=== PATIENT | female | born 1945 | race Caucasian/White ===

== ENCOUNTER → 2017-12-03 09:50 | Outpatient (POV) | payer MEDICARE, BC, SELFPAY | PROVIDERS: Family Provider Nurse Practitioner Family; PCP Family Medicine; Visit Provider Physician Assistant | DX: Z00.00 Encounter for general adult medical examination without abnormal findings (principal) ==

== ENCOUNTER → 2018-09-26 09:53 | Outpatient (CLI) | payer MEDICARE, BC, SELFPAY ==
[2018-09-26 10:19] LABS: Microscopic, Urine URINE MICROSCOPIC (MICROSCOPIC)
[2018-09-26 11:04] LABS: Appearance,Urine CLEAR (Clear); Bilirubin,Urine Negative (Negative); Blood, Urine TRACE-L (Negative); Color,Urine YELLOW (Yellow); Glucose,Urine (UA) Negative (Negative); Ketones,Urine Negative (Negative); Leukocyte Esterase,Urine Negative (Negative); Nitrate,Urine Negative (Negative); Protein,Urine Negative (Negative); Specific Gravity, Urine 1.015 (1.005-1.030); Urobilinogen,Urine 0.2 EU/dl (0.2)
[2018-09-26 11:15] LABS: Basophils # 0.1 K/mm3 (0-0.2); Basophils % 1.2 % (0.1-2.0); Eosinophils # 0.2 K/mm3 (0.0-0.4); Eosinophils % 3.8 % (0.1-12.0); Hematocrit 37.9 % (37.0-47.0); Hemoglobin 12.6 g/dL (12.2-16.2); Lymphocytes # 1.8 K/mm3 (0.7-4.5); Lymphocytes % 28.8 % (10-50); Mean Corpuscular HGB Conc 33.3 g/dL (31.8-35.4); Mean Corpuscular Hemoglobin 28.8 pg (27.0-31.2); Mean Corpuscular Volume 86.6 fl (81-99); Monocytes # 0.3 K/mm3 (0.1-1.0); Monocytes % 5.3 % (1.7-9.3); Neutrophils # 3.7 K/mm3 (1.8-7.8); Platelet Count 323 K/mm3 (142-424); Red Blood Count 4.38 M/mm3 (4.20-5.40); Red Cell Distribution Width 13.7 % (11.5-17.5); White Blood Count 6.1 K/mm3 (4.8-10.8)
[2018-09-26 11:45] LABS: Alanine Aminotransferase 21 U/L (12-78); Albumin Level 3.7 gm/dL (3.4-5.0); Albumin/Globulin Ratio 1.1 (1.1-1.8); Alkaline Phosphatase 94 U/L (46-116); Anion Gap 15.9 mEq/L (5-15); Aspartate Amino Transferase 17 U/L (15-37); Bilirubin,Total 0.5 mg/dL (0.2-1.0); Blood Urea Nitrogen 14 mg/dL (7-18); Calcium 9.3 mg/dL (8.5-10.1); Carbon Dioxide 26 mmol/L (21.0-32.0); Chloride 100 mmol/L (98-107); Chol/HDL Ratio 4.7 (1-3.5); Cholesterol 197 mg/dL (140-200); Creatinine,Serum 0.69 mg/dL (0.55-1.02); Estimated Glomerular Filt Rate 84 ml/min (>60); Free T4 (Free Thyroxine) 1.25 ng/dl (0.76-1.46); GFR (African American) 101 ML/MIN (>60); Globulin 3.3 gm/dl (1.3-3.2); Glucose 96 mg/dL (74-106); HDL Cholesterol 42 mg/dL (29-89); LDL Cholesterol 121 mg/dL (0-130); Potassium 3.9 mmoL/L (3.5-5.1); Sodium 138 mmol/L (136-145); Thyroid Stimulating Hormone 1.41 uIU/ml (0.358-3.740); Triglycerides 170 mg/dL (30-200); VLDL Cholesterol 34 mg/dL (0-40)
[2018-09-27 08:29] LABS: Iron 77 ug/dL (27-139); UIBC 196 ug/dL (118-369)
[2018-09-28 03:46] LABS: Iron Saturation 28 % (15-55); Vitamin B12 617 pg/mL (232-1245)
[2018-09-30 20:09] LABS: 1,25-Dihydroxy, Vitamin D-2 <10 pg/mL (.)
[2018-10-01 06:11] LABS: 1,25 Dihydroxy Vitamin D 32 pg/mL (.); 1,25-Dihydroxy, Vitamin D-3 32 pg/mL (.)
== END ==
PROVIDERS: Visit Provider Emergency Medicine
DX: E78.5 Hyperlipidemia, unspecified (principal); D64.9 Anemia, unspecified; I10 Essential (primary) hypertension; E53.8 Deficiency of other specified B group vitamins
CPT/HCPCS: 80053; 80061; 81001; 82607; 82652; 82746; 83540; 83550; 84439; 84443; 85025

== ENCOUNTER → 2019-07-01 14:50 | Outpatient (POV) | payer MEDICARE, BC, SELFPAY | PROVIDERS: Visit Provider Dermatology | DX: Z00.00 Encounter for general adult medical examination without abnormal findings (principal) ==

== ENCOUNTER → 2019-07-10 10:48 | Outpatient (CLI) | payer MEDICARE, BC, SELFPAY ==
--- NOTE | 2019-07-10 | MR_ITS ---
PROCEDURE: MR LUMBAR SPINE WO CON CLINICAL INDICATION: RADICULAR PAIN COMPARISON: No exams were available for comparison TECHNIQUE: Standard multiplanar multiecho sequences are performed without contrast. 3-D MIP and myelographic images are also rendered and reviewed FINDINGS: There is moderate anterior subluxation of L5 on S1. Are multiple levels of severe degenerative disc disease at L3 through S1. There are type 1 subchondral marrow signal changes at L1-2 and L5-S1. L1-2: Mild bulge with a mild ventral thecal sac deformity. Foraminal areas are normal. L2-3: There is a disc bulge with a mild to moderate associated right paracentral protrusion of the nucleus pulposis. There is mild facet hypertrophy. This causes moderate generalized thecal sac attenuation greater along the right lateral recess. Foraminal nerve roots appear normal. L3-4: There is diffuse mild bulge/posterior spur along with mild facet hypertrophy causing mild to moderate generalized thecal sac attenuation. There is bilateral foraminal encroachment which is mild on the right and moderate on the left however there is no definite deformity of the foraminal nerve root. L4-5: There is a very mild disc bulge and mild facet hypertrophy within the generalized mild thecal sac attenuation. The there is however severe foraminal encroachment on the left with possible mild deformity of the left L4 nerve root in the foramina. L5-S1 shows the subluxation and borderline mild disc bulge. Posterior elements are unremarkable and there is no definite thecal sac attenuation however there is severe loss of the epidural fat in the foraminal areas bilaterally specially on the left and mass effect upon the left L5 nerve root in the foramina is possible. Conus area appears unremarkable. There is crowding of the cauda equina structures at L2-3. Visualized paraspinal areas are unremarkable. IMPRESSION: Multiple levels of chronic intervertebral osteochondrosis. 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 Multiple bulges and facet arthrosis cause acquired central canal stenosis which is generally mild although more moderate at L2-3 especially along the right lateral recess. There is associated bulge and right paracentral herniation of the protrusion type. Areas of foraminal stenosis, occurs at multiple levels although is more severe bilaterally at L5-S1 and on the left at L4-5. Dictated by: Ulises Ty 07/10/2019 12:18 Electronically signed by Ulises Ty in [place] 07/10/2019 12:18
== END ==
PROVIDERS: Visit Provider Emergency Medicine
DX: M54.16 Radiculopathy, lumbar region (principal)
CPT/HCPCS: 72148; 76376

== ENCOUNTER → 2019-12-01 10:56 | Outpatient (CLI) | payer MEDICARE, BC, SELFPAY ==
--- NOTE | 2019-12-01 11:05 | XR_ITS ---
PROCEDURE: XR HIP LT 2-3V W/PELVIS CLINICAL INDICATION: LT HIP PAIN COMPARISON: No exams were available for comparison FINDINGS: Mild osteoarthritis of the left hip. No acute fracture or dislocation. No lytic or blastic change. Incidental note is made of osteitis pubis, mild osteoarthritis of the right hip, and degenerative changes of the lumbar spine and lumbosacral junction. IMPRESSION: Mild osteoarthritis of the left hip Dictated by: Gary Bess MD 12/01/2019 11:28 Electronically signed by Gary Bess MD in [place] 12/01/2019 11:28
== END ==
PROVIDERS: PCP Nurse Practitioner Family; Visit Provider Nurse Practitioner Family
DX: M25.562 Pain in left knee (principal)
CPT/HCPCS: 73502

== ENCOUNTER → 2020-02-24 11:18 | Outpatient (CLI) | payer MEDICARE, BC, SELFPAY ==
--- NOTE | 2020-02-24 | CA_ITS ---
APPROVED REPORT Left Lower Extremity Venous Study for DVT. Audio Tape Librarian: CT Indications Lower Extremity Pain: Left Lower Extremity Edema: Left Medications Aspirin 81 MG Vein Imaging CFV (L): compressive, spontaneous, phasic, augmentation SFJ (L): compressive, spontaneous, phasic, augmentation FEM (L): compressive, spontaneous, phasic, augmentation POP (L): compressive, spontaneous, phasic, augmentation DFV (L): compressive, spontaneous, phasic, augmentation PTV (L): compressive, spontaneous, phasic, augmentation GSV (L): compressive, spontaneous, phasic, augmentation SSV (L): compressive, spontaneous, phasic, augmentation Peroneals (L):compressive, spontaneous, phasic, augmentation GAS (L): compressive, spontaneous, phasic, augmentation Findings LLE negative for DVT/SVT. Vessels compressible. No reflux noted. Conclusion LLE negative for DVT/SVT. Vessels compressible. No reflux noted. Electronically signed by : Gary Bess MD 02/24/2020 15:31:27
--- NOTE | 2020-02-24 12:08 | XR_ITS ---
PROCEDURE: XR ANKLE LT MIN 3V CLINICAL INDICATION: L ANKLE SWELLING COMPARISON: No exams were available for comparison FINDINGS: There is mild generalized soft tissue swelling about the ankle. No fracture or dislocation. No lytic or blastic change. There is a small calcaneal spur.. There is a faint calcific density at the tip of the medial malleolus and could be due to an old avulsion injury IMPRESSION: Soft tissue swelling. Faint calcific density at the tip of the medial malleolus which could be due to an old avulsion injury versus dystrophic calcification otherwise negative Dictated b Gary Bess MD 02/24/2020 12:29 Gary Bess MD in [place] 02/24/2020 12:29
== END ==
PROVIDERS: PCP Nurse Practitioner Family; Visit Provider Nurse Practitioner Family
DX: M79.605 Pain in left leg (principal); M25.472 Effusion, left ankle; M79.89 Other specified soft tissue disorders
CPT/HCPCS: 73610; 93971

== ENCOUNTER → 2020-03-16 12:33 | Outpatient (CLI) | payer MEDICARE, BC, SELFPAY ==
--- NOTE | 2020-03-16 12:39 | MM_ITS ---
PROCEDURE: MM DIG MAMM DX UNILAT LT CAD Digital Breast Tomosynthesis Included CLINICAL INDICATION: BREAST DENSITY COMPARISON: MG MAMMO ADDITIONAL VIEWS LT from 01/08/2019 MG MAMMO ADDITIONAL VIEWS LT from 01/08/2019 MG MAMMO ADDITIONAL VIEWS LT from 01/08/2019 US US BREAST LIMITED BILATERAL from 01/08/2019 MG Screening-Bilateral Mammography from 01/12/2020 TECHNIQUE: Standard CC and MLO images and 3D Tomosynthesis was obtained. R2 CAD reviewed. FINDINGS: Report is delayed waiting on outside films and reports for comparison. Outside exams submitted on 03/29/2020. the older study from 11/26/2018 is not made available. Problem solving views were not performed at the time of the exam as the patient did not bring there old films at nor the old report and there was no direction on where to perform the spot-compression views. There is coarse calcification in the superior aspect of the left breast. Multiple skin lesions are marked with skin markers. There is an asymmetric density in the superior aspect of the left breast which measures 9 mm. This does persist on the tomogram images. Suggested the patient return for spot compression views of this area and left breast ultrasound. At that time the patient should bring all of her old studies an old reports. IMPRESSION: Incomplete. Report delayed waiting on old studies which are not still not completely made available. Suggest the patient return for spot compression views of the upper outer aspect of the left breast and bring old exams and reports at the time of the compression views. Ultrasound left breast also recommended. BI-RAD Category: 0 Need Additional Imaging Evaluation FOLLOW-UP: IMM Immediate Follow-up Recommended (A letter has been sent to the patient regarding results of the study.) Dictated by: Gary Bess MD 03/30/2020 13:57 Gary Bess MD in [place] 03/30/2020 13:57
== END ==
PROVIDERS: PCP Nurse Practitioner Family; Visit Provider Nurse Practitioner Family
DX: R92.2 Inconclusive mammogram (principal)
CPT/HCPCS: 77061; 77065; G0279

== ENCOUNTER → 2020-04-16 11:41 | Outpatient (CLI) | payer MEDICARE, BC, SELFPAY ==
--- NOTE | 2020-04-16 11:59 | XR_ITS ---
PROCEDURE: XR HIP LT 2-3V W/PELVIS Referring Doctor: Brook Vargas Patient Age:75Y CLINICAL INDICATION: LT HIP PAIN posterior hip pain and back pain for over 1 year. Resulted in overuse most likely while active, cleaning. COMPARISON: MR MR LUMBAR SPINE WO CON from 07/10/2019 CR XR HIP LT 2-3V W/PELVIS from 12/01/2019 FINDINGS: Left hip AP and lateral view; with AP pelvis radiograph Left hip: Suggestion mild osteoarthritis of the left hip. Borderline to subtle joint space narrowing superiorly with some minimal sclerosis developing along the roof of the acetabulum. Mild hypertrophic ridging at the superior rim of the acetabulum.. The femoral head and neck are intact but overall appearance with no significant or definite change since November 2019 20 here at left hip or pelvis but AP pelvis The osseous pelvis appears stable and intact also some minor osteoarthritic changes right hip note mild hypertrophic lipping at the right acetabulum. Features reflecting minor degenerative changes right hip as well The SI joints, iliac bone intact. Mild sclerosis about the pubic symphysis mild osteitis pubis likely longstanding feature often related to to multi pelvis No change since previous study . Most notable are the degenerative changes at the lower L-spine. Marked joint space narrowing at L3/4-L4/5 with generous marginal osteophytes. Mild scoliosis but I see the patient had a previous MR lumbar on 06/2019 which demonstrate a variety of findings. IMPRESSION: Stable appearance of pelvis and left hip since November 2019 Mild osteoarthritic changes of both left and right hip again noted. A prominent degenerative arthritic changes lower L-spine again incidentally noted as well. Dictated by: Genaro Lenz MD 04/16/2020 12:30 Genaro Lenz MD in [place] 04/16/2020 12:30
[2020-04-16 12:54] LABS: Chloride 96 mmol/L (98-107); Sodium 135 mmol/L (136-145)
[2020-04-16 12:55] LABS: Potassium 4.2 mmoL/L (3.5-5.1)
[2020-04-16 12:57] LABS: Alanine Aminotransferase 14 U/L (12-78); Albumin/Globulin Ratio 1.5 (1.1-1.8); Alkaline Phosphatase 84 U/L (38-126); Anion Gap 14.2 mEq/L (5-15); Aspartate Amino Transferase 23 U/L (14-36); Bilirubin,Total 0.5 mg/dl (0.2-1.3); Blood Urea Nitrogen 17 mg/dl (7-17); Carbon Dioxide 29 mmol/L (22.0-30.0); Estimated Glomerular Filt Rate 70 ml/min (>60); GFR (African American) 85 ML/MIN (>60); Globulin 2.7 g/dL (1.3-3.2); Total Protein,Serum 6.7 g/dl (6.3-8.2)
[2020-04-16 12:58] LABS: Calcium 9.4 mg/dl (8.4-10.2); Glucose 92 mg/dl (74-100)
== END ==
PROVIDERS: PCP Nurse Practitioner Family; Visit Provider Nurse Practitioner Family
DX: I10 Essential (primary) hypertension (principal); M25.552 Pain in left hip
CPT/HCPCS: 36415; 73502; 80053

== ENCOUNTER → 2020-05-24 10:24 | Outpatient (CLI) | payer MEDICARE, BC, SELFPAY ==
--- NOTE | 2020-05-24 10:28 | MR_ITS ---
PROCEDURE: MR HIP LT WO CON CLINICAL INDICATION: ACUTE PAIN OF LEFT LOWER EXTREMITY LEFT HIP PAIN BELOW BUTTOCK AREA X2 YEARS. NO KNOWN INJURY, PT STATES SHE MAY STRAINED IT WHEN CLEANING OUT HER BARN. COMPARISON: CR XR HIP LT 2-3V W/PELVIS from 04/16/2020 TECHNIQUE: Routine multiplanar multi echo sequences are performed without gadolinium enhancement. FINDINGS: No fracture or dislocation. No abnormal bone marrow signal intensity within the femoral heads. There are minimal osteoarthritic changes of the hips. The unremarkable appearing soft tissues. No abnormal fluid collections. No evidence of avascular necrosis IMPRESSION: Minimal osteoarthritic changes of the hips. No acute finding. Dictated by: Gary Bess MD 05/25/2020 15:48 Gary Bess MD in [place] 05/25/2020 15:48
== END ==
PROVIDERS: PCP Nurse Practitioner Family; Visit Provider Nurse Practitioner Family
DX: M79.605 Pain in left leg (principal); M25.552 Pain in left hip
CPT/HCPCS: 73721

== ENCOUNTER → 2020-06-22 10:20 | Outpatient (POV) | payer MEDICARE, BC, SELFPAY | PROVIDERS: Visit Provider Dermatology | DX: Z00.00 Encounter for general adult medical examination without abnormal findings (principal) ==

== ENCOUNTER → 2020-08-27 12:27 | Outpatient (CLI) | payer MEDICARE, BC, SELFPAY ==
--- NOTE | 2020-08-27 12:44 | XR_ITS ---
PROCEDURE: XR LUMBAR SPINE MIN 4V CLINICAL INDICATION: PROTRUSION OF LUMBAR,LUMBAGO COMPARISON: MR MR LUMBAR SPINE WO CON from 07/10/2019 FINDINGS: There is straightening of the normal curvature suggesting muscle spasm. All lumbar vertebrae appear intact. Prominent multilevel disc space narrowing is noted with anterior and posterior osteophytic spurring at multiple levels. There is stable grade 1-2 anterolisthesis of L5 on S1. The SI joints appear normal. There are moderate hypertrophic facet changes L4-5 and L5-S1. IMPRESSION: Findings of muscle spasm and multilevel degenerate changes most of which are stable though there has been interval progression of disc space at the L1-2 and L2-3 levels since the previous MRI exam. Dictated by: Dr. Conner Parra MD 08/27/2020 17:02 Dr. Conner Parra MD in [place] 08/27/2020 17:02
== END ==
PROVIDERS: PCP Nurse Practitioner Family; Visit Provider Nurse Practitioner Family
DX: M51.26 Other intervertebral disc displacement, lumbar region (principal); M54.42 Lumbago with sciatica, left side; G62.9 Polyneuropathy, unspecified
CPT/HCPCS: 72110

== ENCOUNTER → 2021-03-16 15:35 | Outpatient (CLI) | payer MEDICARE, BC, SELFPAY | PROVIDERS: Visit Provider Internal Medicine Gastroenterology | DX: Z01.812 Encounter for preprocedural laboratory examination (principal); Z20.822 Contact with and (suspected) exposure to COVID-19; Z12.11 Encounter for screening for malignant neoplasm of colon | CPT/HCPCS: U0003 ==

== ENCOUNTER 2021-03-18 07:06 | Day surgery (SDC) | payer MEDICARE, BC, SELFPAY ==
[2021-03-09 13:04] VITALS: BMI 29.9
[2021-03-18 07:23] VITALS: BP 155/83; PULSE 78; RESP 20; TEMP 36.6; O2SAT 98
--- NOTE | 2021-03-18 07:44 | P.PN_ITS ---
[facility] Anesthesia Checklist - Patient Identification Patient Identification: Arm Band - Structural Data Admitted From: Home Planned Operative Procedure/s: Colonoscopy Consent for Planned Operative Procedure(s) Verified: Yes - NPO Status Verified Time NPO: 00:00 - Airway Assessment C-Spine Mobility Assessed: Yes TMJ Mobility Assessed: Yes Dentition: Partials - Neurological Assessment Level of Consciousness: Awake Hx Seizures: No Numbness or tingling in extremities: No - Anesthesia Plan Anesthesia Risk discussed: Yes Anesthesia Plan: Verified ASA Class: III Anesthesia Type: MAC [facility] History I have reviewed the patient's past medical history: Yes Medical History: Reports:: Cancer (UTERINE CANCER), Hypertension Denies:: Diabetes Mellitus Type 1, Diabetes Mellitus Type 2, Internal Pacemaker, MRSA, Seizures *Have you ever received a pneumonia vaccine?: Yes *Have you received a flu vaccine this season?: Yes Anesthesia experience/problems:: None Laterality Cases: Bilateral: Cataract Other Surgeries: No: Pacemaker Amputation: No Fractures: No - *Social History Last grade of school completed: GED Smoking Status: Never smoker Alcohol Intake: never Substance Use Type: denies use *Occupational Status:: retired Housing: house Household Members: none *Travel in the last 8 weeks: None Family Hx:: Anemia, Cancer, Diabetes, Heart Attack, Hyperlipidemia, Hypertension, Kidney Disease, Stroke
--- NOTE | 2021-03-18 08:07 | P.PCN_ITS ---
[facility] Procedure Note Procedure Note:: Colonoscopy Procedure Report: Colonoscopy with cold snare polypectomy Endoscopist: Goyo Lopez II, MD Referring physician: Caroline RUIZ Date of Procedure: March 18, 2021 Equipment: Olympus 190 variable stiffness pediatric colonoscope Sedation: MAC sedation Indication: Mrs. Brady is a 75-year-old female who is here for follow-up surveillance/screening secondary to a personal history of colon polyps. She did have a colonoscopy 5 to 6 years ago (Dr. Mike Matos) and had polyps removed. She does have a history of uterine cancer. She reports no abdominal pain, weight loss, change in her bowel habits or rectal bleeding. She reports no family history of colon cancer. Procedure: Prior to the procedure, a history and physical exam was performed, and patient's medications and allergies were reviewed. The risks, benefits and alternatives of the sedation and procedure were discussed with the patient. All questions were answered and informed consent was obtained. The patient was brought to the procedure room. Patient identification and proposed procedure were verified by the physician and the nurse. The patient was placed in a left lateral decubitus position and the scope was passed under direct vision. Throughout the procedure, the patient's blood pressure, pulse, and oxygen saturations were monitored continuously. The colonoscopy was accomplished without difficulty. The patient tolerated the procedure well. Findings: On digital rectal examination there was normal rectal tone. There were no external hemorrhoids. The colonoscope was introduced through the anal canal to the rectum and advanced to the cecum. The ileocecal valve and appendiceal orifice were identified. The scope was advanced a short distance into the ileum which appeared grossly normal. The scope was then withdrawn into the colon. The cecum and ascending colon were grossly normal. There was a 5 mm transverse colon polyp removed via cold snare polypectomy. There were scattered diverticuli throughout the descending and sigmoid colon (LEFT colon). There was some pericolonic adhesions around the sigmoid colon from prior hysterectomy. The rectum itself was normal. Upon retroflexion within the rectum there were grade 1-2 internal hemorrhoids. The preparation was excellent throughout with [place] Preparation Score of 9. The cecal time was 12 minutes. Impression: 1. Diminutive transverse colon polyp (5 mm) 2. Left-sided diverticulosis 3. Grade 1-2 internal hemorrhoids Plan: I will follow up the polyp histology. Based upon the patient's age, I am not convinced that she will necessarily require further preventive/surveillance colonoscopy. I would encourage bulking fiber supplementation on a long-term daily maintenance basis.
[2021-03-18 08:29] VITALS: BP 135/58; PULSE 75; RESP 18; TEMP 36.3; O2SAT 90
[2021-03-18 08:39] VITALS: BP 142/71; PULSE 75; RESP 18; O2SAT 96
[2021-03-18 08:47] VITALS: BP 137/60; PULSE 73; RESP 18; O2SAT 95
[2021-03-18 09:10] VITALS: BP 146/70; PULSE 68; RESP 18; O2SAT 94
[2021-03-18 12:13] VITALS: O2SAT 97
== END 2021-03-18 09:11 | disposition home or self-care (01) ==
LOC: OUTP 07:09
PROVIDERS: PCP Nurse Practitioner Family; Visit Provider Internal Medicine Gastroenterology
PROC: 0DJD8ZZ Inspection of Lower Intestinal Tract, Via Natural or Artificial Opening Endoscopic (ICD-10-PCS; CPT 45378; principal; 2021-03-18 08:00)
DX: Z12.11 Encounter for screening for malignant neoplasm of colon (principal); K66.0 Peritoneal adhesions (postprocedural) (postinfection); K63.5 Polyp of colon; K57.30 Diverticulosis of large intestine without perforation or abscess without bleeding; K64.0 First degree hemorrhoids; Z86.010 Personal history of colon polyps; Z85.42 Personal history of malignant neoplasm of other parts of uterus; I10 Essential (primary) hypertension; Z83.3 Family history of diabetes mellitus; Z80.9 Family history of malignant neoplasm, unspecified; Z82.3 Family history of stroke; Z82.49 Family history of ischemic heart disease and other diseases of the circulatory system; Z83.438 Family history of other disorder of lipoprotein metabolism and other lipidemia
CPT/HCPCS: 45385; 88305; J2704

== ENCOUNTER → 2021-04-26 13:15 | Outpatient (CLI) | payer MEDICARE, BC, SELFPAY ==
--- NOTE | 2021-04-26 13:18 | MM_ITS ---
PROCEDURE INFORMATION: Exam: MG Bilateral Screening 3D Mammography Exam date and time: 04/26/2021 1:18 PM Age: 76 years old Clinical indication: Encounter for screening mammogram for malignant neoplasm of breast TECHNIQUE: Imaging protocol: Bilateral screening tomosynthesis and 2D mammography including computer-aided detection (CAD) when performed. COMPARISON: 1. MG MM DIG MAMM DX UNILAT LT CAD 03/16/2020 1:10 PM 2. MG Screening-Bilateral Mammography 01/12/2020 11:23 AM FINDINGS: MAMMOGRAPHY: Breast composition: The breast tissue is heterogeneously dense, which may obscure small masses. Mass: Stable benign-appearing subcentimeter nodules are present in the left breast. No new or morphologically suspicious nodule has developed to suggest malignancy. Architectural distortion: No new or suspicious architectural distortion. Calcifications: Stable benign-appearing calcifications are present. No new or suspicious cluster of microcalcifications have developed. Asymmetric density: No new or suspicious asymmetric density is present Skin thickening: None. Axillary adenopathy: None. IMPRESSION: No mammographic evidence of malignancy. Recommend annual screening mammography unless otherwise clinically indicated. ASSESSMENT: BI-RADS category 2: Benign
== END ==
PROVIDERS: PCP Nurse Practitioner Family; Visit Provider Nurse Practitioner Family
DX: Z12.31 Encounter for screening mammogram for malignant neoplasm of breast (principal)
CPT/HCPCS: 77063; 77067

== ENCOUNTER → 2021-05-20 08:45 | Outpatient (CLI) | payer MEDICARE, BC, SELFPAY ==
--- NOTE | 2021-05-20 08:54 | XR_ITS ---
PROCEDURE: XR KUB CLINICAL INDICATION: LT SIDED ABD PAIN,DYSURIA,CYSTITIS COMPARISON: No exams were available for comparison FINDINGS: Gas pattern-The bowel gas pattern is unremarkable. No obvious obstruction. Calcifications-No abnormal calcifications are evident. No obvious renal or ureteral calculi. There are degenerative changes in the lumbar spine. Sclerosis noted at the symphysis pubis IMPRESSION: No acute findings. Dictated by: Gary Bess MD 05/20/2021 15:09 Gary Bess MD in [place] 05/20/2021 15:09
== END ==
PROVIDERS: PCP Nurse Practitioner Family; Visit Provider Nurse Practitioner Family
DX: R10.9 Unspecified abdominal pain (principal); R30.0 Dysuria; N30.00 Acute cystitis without hematuria
CPT/HCPCS: 74018

== ENCOUNTER → 2021-06-21 11:18 | Outpatient (POV) | payer MEDICARE, BC, SELFPAY | PROVIDERS: Visit Provider Dermatology | DX: Z00.00 Encounter for general adult medical examination without abnormal findings (principal) ==

== ENCOUNTER → 2021-07-06 08:32 | Outpatient (CLI) | payer MEDICARE, BC, SELFPAY | PROVIDERS: Visit Provider Nurse Practitioner | DX: Z20.822 Contact with and (suspected) exposure to COVID-19 (principal) | CPT/HCPCS: C9803; U0003; U0005 ==

== ENCOUNTER → 2021-09-13 11:16 | Outpatient (CLI) | payer MEDICARE, BC, SELFPAY ==
--- NOTE | 2021-09-13 11:21 | MR_ITS ---
FINAL REPORT CLINICAL HISTORY: LUMBAGO W/ SCIATICA, LT SIDE, LUMBAR DDD, LEFT LEG TINGLING/NUMBNESS PRIOR MRI 07-10-19 COMPARISON: 07/10/2019 FINDINGS: Multiplanar MR imaging of the lumbar spine was performed without contrast. On the sagittal T2-weighted images, disc degeneration is seen throughout the lumbar spine. There is disc space narrowing and endplate changes at multiple levels. There is 11 mm of anterolisthesis of L5 on S1 which is stable. There is dextroscoliosis centered in the lower lumbar spine. There is 10 mm of right lateral subluxation of L4 on L5. There is 7 mm of left lateral subluxation of L3 on L4. There is no evidence of fracture. Several hemangiomas are noted. The conus has an unremarkable appearance. No significant canal stenosis is identified. L1-2: There is an annular disc bulge with facet arthropathy and vertebral osteophytes. There is no significant canal stenosis. There is moderate bilateral neural foraminal narrowing. L2-3: There is an annular disc bulge with facet arthropathy and vertebral osteophytes. There is a right foraminal disc protrusion. There is no significant canal stenosis. There is severe right and moderate left neural foraminal narrowing. L3-4: There is an annular disc bulge with facet arthropathy and vertebral osteophytes. There is no significant canal stenosis. There is moderate right and severe left neural foraminal narrowing. L4-5: There is an annular disc bulge with facet arthropathy and vertebral osteophytes. There is no significant canal stenosis. There is bilateral neural foraminal narrowing. L5-S1: There is an annular disc bulge with facet arthropathy and vertebral osteophytes. There are bilateral L5 pars defects history there is grade 2 anterolisthesis of L5 on S1. There is no significant canal stenosis. There is severe bilateral neural foraminal narrowing. IMPRESSION: Stable, multilevel degenerative disc disease and spondylosis as described. Reviewed, Interpreted and Dictated by Roe Carmichael III, MD Transcribed by Little Gonzalez Authenticated by Roe Carmcihael III, MD on 09/13/2021 01:43:[address] [facility]
== END ==
PROVIDERS: PCP Nurse Practitioner Family; Visit Provider Nurse Practitioner Family
DX: M51.36 Other intervertebral disc degeneration, lumbar region (principal); M54.42 Lumbago with sciatica, left side
CPT/HCPCS: 72148; 76376

== ENCOUNTER 2022-04-25 14:00 | Outpatient (RCR) | payer MEDICARE, BC, SELFPAY | END 2022-04-25 14:05 | disposition home or self-care (01) | LOC: PT 14:00 | PROVIDERS: PCP Nurse Practitioner Family; Visit Provider Podiatrist | DX: I89.0 Lymphedema, not elsewhere classified (principal) | CPT/HCPCS: 97140; 97162; 97760 ==

== ENCOUNTER → 2022-05-23 13:55 | Outpatient (POV) | payer MEDICARE, BC, SELFPAY | PROVIDERS: Visit Provider Dermatology | DX: Z00.00 Encounter for general adult medical examination without abnormal findings (principal) ==

== ENCOUNTER → 2022-06-05 10:15 | Outpatient (CLI) | payer MEDICARE, BC, SELFPAY ==
--- NOTE | 2022-06-05 10:19 | MM_ITS ---
PROCEDURE INFORMATION: Exam: MG Bilateral Screening 3D Mammography Exam date and time: 06/05/2022 10:18 AM Age: 77 years old Clinical indication: Screening examination. No family history of breast cancer. TECHNIQUE: Imaging protocol: Bilateral Screening tomosynthesis and 2D mammography including computer-aided detection (CAD) when performed. COMPARISON: 1. MG MM DIG SCREENING MAMM BI W/CAD 04/26/2021 1:19 PM 2. MG MM DIG MAMM DX UNILAT LT CAD 03/16/2020 1:10 PM 3. MG Screening-Bilateral Mammography 01/12/2020 11:23 AM FINDINGS: MAMMOGRAPHY: Breast composition: The breasts are heterogeneously dense, which may obscure small masses. Mass: No suspicious mass. Architectural distortion: None. Calcifications: No suspicious calcifications. Asymmetric density: None. Skin thickening: None. Axillary adenopathy: None. IMPRESSION: No mammographic evidence of malignancy. Annual screening is recommended unless otherwise clinically indicated. ASSESSMENT: BI-RADS Category 1: Negative
== END ==
PROVIDERS: PCP Nurse Practitioner Family; Visit Provider Nurse Practitioner Family
DX: Z12.31 Encounter for screening mammogram for malignant neoplasm of breast (principal)
CPT/HCPCS: 77063; 77067

== ENCOUNTER → 2023-06-11 10:17 | Outpatient (CLI) | payer MEDICARE, BC, SELFPAY ==
--- NOTE | 2023-06-11 10:21 | MM_ITS ---
PROCEDURE INFORMATION: Exam: MG Bilateral Screening 3D Mammography Exam date and time: 06/11/2023 10:29 AM Age: 78 years old Clinical indication: Screening examination TECHNIQUE: Imaging protocol: Bilateral Screening tomosynthesis and 2D mammography including computer-aided detection (CAD) when performed. COMPARISON: 1. MG MM DIG SCREENING MAMM BI W/CAD 06/05/2022 10:18 AM 2. MG MM DIG SCREENING MAMM BI W/CAD 04/26/2021 1:19 PM FINDINGS: MAMMOGRAPHY: Breast composition: The breasts are heterogeneously dense, which may obscure small masses. Mass: None. Architectural distortion: None. Calcifications: No suspicious calcifications. Asymmetric density: None. Skin thickening: None. Axillary adenopathy: None. IMPRESSION: No mammographic evidence of malignancy. Annual screening is recommended unless otherwise clinically indicated. ASSESSMENT: BI-RADS Category 1: Negative
== END ==
PROVIDERS: PCP Nurse Practitioner Family; Visit Provider Nurse Practitioner Family
DX: Z12.31 Encounter for screening mammogram for malignant neoplasm of breast (principal)
CPT/HCPCS: 77063; 77067

== ENCOUNTER 2024-10-29 12:44 | Outpatient (CLI) | payer MEDICARE, BC, SELFPAY ==
--- OUTSIDE RECORDS SUMMARY | 2024-10-29 12:47 | XMS_ITS | Continuity of Care Document ---
Author Organization [place] - [facility] [place] [facility] Address [address] [place] [address] Care Team Providers Care Customer Account Executive Name Role Phone IVÁN MORENO Primary Care Provider Assessment Encounter Date Assessment Date Assessment LastModified by Organization Details LastModified Time 10/08/2024 10/08/2024 Patient Educatio n was printed, I have reviewed the Past Medical, Family, and Social Histories along with ROS and all orders in today's record, and have noted any changes. Medications, charts and records reviewed in full today. - EKG today reveals sinus bradycardia with a rate of 54 beats per minute, poor R-wave progression, nonspecific T-wave abnormality, abnormal EKG. Blood pressure 132/62, heart rate 54, weight 172 lb. Oxygen saturation is 99% on room air. Weight is up 2 lb since last visit. - LAST ECHO: March 07, 2022 showed an ejection fraction of 60-65% with mild mitral regurgitation and diastolic dysfunction. LAST ISCHEMIC EVAL: March 07, 2022 showed reverse redistribution but no evidence of ischemia. MONITOR: February 13, 2022 her one-week monitor showed maximum 146, minimum 43, at 58 with 9 episodes of nonsustained SVT the longest being 14 beats with questionable atrial tachycardia. There were rare PVCs and occasional PACs. - Plan: Laboratory studies. Consider echocardiogram at follow-up Discussed pharmacological and nonpharmacological management of chronic venous insufficiency and dependent edema. Monitor for new or worsening signs and symptoms. Return sooner if symptoms persist or worsen. Follow-up in one year. EKG at follow-up. - -Continue other current medications. -Continue aggressive risk factor modification. -Recommend LDL less than 100. -Encouraged regular exercise and activity. - This note was dictated using [employer] software. If something is unclear, or does not make sense, please do not hesitate to contact our office at [phone] for clarification. [email or web address] Not available 10/08/2024 11:42:31 Plan of Treatment Reminders Order Date Submit Date Provider Last Modified By Organization Details Last Modified Time Details Appointments OV EST 30 2025 11:30A M Ezequiel Chinchilla MD Not available Not available Not available Lab CBC w/ auto diff 2024 025 [facility] (Registration ), [facility] [address], [place], [address], 10/15/2024 09:09:24 CMP, serum or plasma 2024 025 [facility] (Registration ), [address], [place], [address], 10/15/2024 09:09:24 magnesium , serum or plasma 2024 025 [facility] (Registration ), [address], [place], [address], 10/15/2024 09:09:24 lipid panel w/ direct LDL, serum 2024 025 [facility] (Registration ), [address], [place], [address], 10/15/2024 09:09:24 Referral None recorded. Procedures None recorded. Surgeries None recorded. Imaging electroca rdiogram 2024 025 [email or web address] [facility], [address], [place], [address], 10/08/2024 11:38:02 Medication Orders None recorded. Patient TargetsNo targets recorded. Patient InstructionsNo instructions recorded. Reason for Referral None Reported. Results Created Date Observation Date Name Description Value Unit Range Abnormal Flag Note LastModifiedBy Organization Detail LastModifiedTime 10/07/1910/06/2024 XR, knee No observ ation record ed. isai Morejon [facility] [address] [place], [address], 10/06/2024 14:04:31 10/09/19 elect rocar diogr am No observ ation record ed. JOSEFA Morejon [address], [place], [address], 10/08/2024 11:07:05 10/09/19 25 10/08/2024 elect rocar diogr am No observ ation record ed. JOSEFA Morejon [address], [place], [address], 10/08/2024 13:57:32 Result Notes None recorded. Problems Name Problem SNOMED Code Status Onset Date Resolution Date Notes Provider Name and Address Organization Details Recorded Time Supraventricul ar tachycardia 6336888 Active 2021 Alber Moreno NP [address] [facility], [place], [address], [place] - [facility] [place] & [place] 2 11:12:39 Essential hypertension 18939186 Active 2021 Alber Moreno NP [address] [facility],[address], [place], [address], [place] - [facility] [place] & [place] 2 11:12:46 Mitral valve regurgitation 28291312 Active 2021 Alber Moreno NP [address], [place], [address], [place] - [facility] [place] & [place] 2 11:12:51 Diastolic dysfunction 9295681 Active 2021 Alber Moreno NP [address] [facility], [place], [address], [place] - [facility] - [place] & [place] 2 11:13:00 Multiple premature ventricular complexes 720881786 Active 2021 Alber Moreno, LIVAN [address] [facility], [place], [address], [facility] & [place] 2 11:13:09 Premature atrial contraction 204674073 Active 2021 Alber Moreno, LIVAN [address] [facility], [place], [address], [place] - [facility] & [place] 2 11:13:20 Problem Notes None recorded. Procedures Surgical History Date Name Laterality Status Provider Name and Address Organization Details Recorded Time extraction of cataract completed Janneth LOPEZ - SPENSER [facility] [place] 05/02/2022 16:15:55 Hysterectomy completed Janneth DUEÑAS [facility] [place] 05/02/2022 16:16:10 Imaging Results Imaging Date Name Status LastModified by Organization Details LastModified Time 10/08/2024 electrocardiogram completed [facility] [address] [place] [address] [address], [place], [address], 10/08/2024 11:07:05 Procedure Notes None recorded. Medical Equipment None Reported. Allergies Allergen ID Allergen Name Allergen Category Reaction Reaction Severity Criticality Documentation Date Start Date Code Code System Note Provider Name and Address Organization Details Recorded Time 07870 levofloxa tarah medicatio n Not available Not available Not available 05/02/2022 16000 RxNorm Janneth ulloa, [place] - [facility] & [place] 2 16:14:01 66256 enoxapari n medicatio n Not available Not available Not available 05/02/2022 93597 RxNorm Janneth ulloa JESS[place] - [facility] & [place] 2 16:14:09 01199 azithromy tarah medicatio n Not available Not available Not available 05/02/2022 18592 RxNorm Janneth ulloa, JESSICA - [facility] & [place] 2 16:14:14 55900 cephalexi n medicatio n Not available Not available Not available 05/02/2022 2231 RxNorm Janneth Brown artemio, [place] - [facility] - [place] & [place] 16:14:19 Medications Name Sig Start Date Stop Date Status Note LastModified by Organization Details LastModified Time amoxicillin 500 mg capsule TAKE 1 CAPSULE TWICE A DAY BY ORAL ROUTE FOR 7 DAYS. 02/13 completed Not Available Not Available Not Available clindamycin HCl 300 mg capsule TAKE ONE CAPSULE BY MOUTH THREE TIMES DAILY FOR 7 DAYS 10/08 completed Not Available Not Available Not Available ibuprofen 800 mg tablet TAKE ONE TABLET BY MOUTH THREE TIMES DAILY --TAKE WITH FOOD-- 09/10 completed Not Available Not Available Not Available fluconazole 150 mg tablet TAKE ONE TABLET BY MOUTH EVERY DAY 10/08 completed Not Available Not Available Not Available prednisone 20 mg tablet TAKE ONE (1) TABLET TWICE A DAY BY ORAL ROUTE FOR FIVE (5) DAYS. 02/13 completed Not Available Not Available Not Available fluorouraci l 5 % topical cream 1(ONE) APPLICATI ON(S) TOPICAL 2(TWO) TIMES A DAY. APPLY TO LEFT UPPER EXTREMITY , RIGHT UPPER EXTREMITY 02/13 completed Not Available Not Available Not Available Debrox 6.5 % ear drops INSTILL FIVE (5) DROPS INTO AFFECTED EAR(S) BY OTIC ROUTE TWO (2) TIMES PER DAY FOR FIVE (5) DAYS 10/08 completed Not Available Not Available Not Available acetaminoph en 300 mg-codeine 30 mg tablet TAKE ONE (1) TABLET TWICE A DAY BY ORAL ROUTE NEEDED FOR 7 DAYS. active Not Available Not Available No t Available aspirin 81 mg tablet,buzz yed release Take 1 tablet every day by oral route. active Not Available Not Available No t Available triamcinolo ne acetonide 0.1 % topical cream APPLY ONE (1) APPLICATI ON(S) TOPICAL 2(TWO) TIMES A DAY 02/13 completed Not Available Not Available Not Available meloxicam 7.5 mg tablet TAKE ONE (1) TABLET EVERY DAY BY ORAL ROUTE. active Not Available Not Available No t Available famotidine 20 mg tablet TAKE ONE TABLET BY MOUTH TWICE DAILY 02/13 completed Not Available Not Available Not Available benzonatate 100 mg capsule TAKE 1 CAPSULE BY MOUTH TWICE DAILY NEEDED 02/13 completed Not Available Not Available Not Available gabapentin 300 mg capsule TAKE 1 CAPSULE BY MOUTH EVERY MORNING AND TAKE ONE (1) CAPSULE EVERY EVENING active Not Available Not Available No t Available mupirocin 2 % topical ointment APPLY A SMALL AMOUNT TO THE AFFECTED AREA 3 TIMES PER DAY 10/08 completed Not Available Not Available Not Available furosemide 20 mg tablet TAKE ONE (1) TABLET BY MOUTH EVERY OTHER DAY NEEDED active Not Available Not Available No t Available gabapentin 100 mg capsule TAKE 1 CAPSULE BY MOUTH AT NOON active Not Available Not Available No t Available ergocalcife rol (vitamin D2) 1,250 mcg (50,000 unit) capsule TAKE ONE (1) CAPSULE EVERY WEEK BY ORAL ROUTE. active Not Available Not Available No t Available nystatin 100,000 unit/gram topical powder APPLY TO THE AFFECTED AREA(S) BY TOPICAL ROUTE TWO (2) TIMES PER DAY active Not Available Not Available No t Available oxycodone-a cetaminophe n 7.5 mg-325 mg tablet 02/13 completed Not Available Not Available Not Available estradiol 0.01% (0.1 mg/gram) vaginal cream INSERT ONE (1) GRAM VAGINALLY TWICE A WEEK active Not Available Not Available No t Available methylpredn isolone 4 mg tablets in a dose pack TAKE ONE (1) DOSE PACKET BY ORAL ROUTE. 02/13 completed Not Available Not Available Not Available cefdinir 300 mg capsule TAKE ONE (1) CAPSULE EVERY 12 HOURS BY ORAL ROUTE FOR 7 DAYS. 10/08 completed Not Available Not Available Not Available fluticasone propionate 50 mcg/actuati on nasal spray,suspe nsion INSTILL ONE (1) SPRAY IN EACH NOSTRIL EVERY DAY 02/13 completed Not Available Not Available Not Available doxycycline hyclate 100 mg tablet TAKE ONE TABLET BY MOUTH TWICE DAILY FOR 7 DAYS -- FINISH ALL MEDICINE -- 02/13 completed Not Available Not Available Not Available atenolol 50 mg tablet Take 1 tablet every day by oral route. active Not Available Not Available No t Available benazepril 10 mg-hydrochl orothiazide 12.5 mg tablet Take 2 tablets every day by oral route. active Not Available Not Available No t Available oxycodone 5 mg tablet TAKE 1 TABLET BY MOUTH EVERY SIX (6) HOURS NEEDED PAIN SCALE 7-10 active Not Available Not Available No t Available diclofenac 1 % topical gel 02/13 completed Not Available Not Available Not Available Vitals Date Recorded Body height Body mass index (BMI) Body weight Oxygen saturation Oxygen saturation in Arterial blood by Pulse oximetry Heart rate Systolic blood pressure Diastolic blood pressure Provider Name and Address Organization Details Last Updated DateTime 5 165.1 cm 28.7 kg/m2 44343.3 2 g 99 % 99 % 54 /min 130 mm[Hg] 62 mm[Hg] Anjali Fulton [facility] & [place] 5 10:54:35 Social History Question Answer Notes LastModified by Organizat ion Details LastModified Time Tobacco Smoking Status Never Smoker Janneth Brown artemio [facility] & [place] 05/02/2022 16:15:45 What Is Your Level Of Alcohol Consumption? None [email or web address] Information not available 05/02/2022 Do You Use Any Illicit Or Recreational Drugs? No [email or web address] Information not available 05/02/2022 Sex: Unknown Functional Status None recorded. Mental Status None recorded. Family History Relationship Description Onset Age of this Age Resolved Age Notes LastModified by Organization Details LastModified Time Father No current problems or disability Not available 04/15 16:15:35 Mother No current problems or disability [email or web address] Not available 04/15 16:15:35 Medical History Condition Response Cancer Y Arrhythmia Y Shortness of Breath Y Hyperlipidemia Y Heart Disease Y Hypertension Y Gynecological HistoryNo gynecological history recorded. Obstetrics History GPAL:G 0 P 0 0 0 0 Past Encounters Encounter ID Performer Location Encounter Start Date Encounter Closed Date Diagnosis/Indication Diagnosis SNOMED-CT Code Diagnosis ICD10 Code Diagnosis Note [id number] MADELAINE VARGAS NP, S [place] [address] [place] [address] 10/08/2024 10:43:33 10/08/2024 11:38:39 Essential hypertension 33094351 I10 Supraventr icular tachycardia 2084251 I47.10 Mitral ariela ve regurgitation 57601980 I34.0 Diastolic dysfunction 35 51333 I51.9 Multiple p remature ventricular complexes 423160623 I49.3 Premature atrial contraction 194665205 I49.1 Health Concerns Section Related Observation LastModified by Organization Detai ls LastModified Time None Recorded Concern Status LastModified by Organization Details LastModified Time None Recorded Payers Encounter Date Sequence Insurance Name Policy Number Policy Bethea Covered Member ID Bethea Member ID Guarantor Name 10/08/2024 1 [place] Delmy Brady [id number] Delmy Brady 10/08/2024 2 [place] [id number] Delmy Brady [id number] Delmy Brady Notes Date Note Type Note Provider Name and Address Organization Details Recorded Time 10/08/2024 text/html Venus is a 79-year-old female who presents today in follow-up. The patient has history significant for hypertension, supraventricular tachycardia,, PVCs, PACs, mitral regurgitation, and diastolic dysfunction of the left ventricle. - Reports feeling good overall- Occasional palpitations, no recent changes or increased severity- No chest pain or pressure- No shortness of breath- Leg swelling: worse throughout day, took furosemide yesterday- Left knee pain: believes related to back surgery in May (3rd surgery)- Difficulty walking: to be evaluated w/ MRI in May- Seeing Dr. Cantu next month for knee issue- Neuropathy in legs up to mid araiza. The patient indicates that she has been taking furosemide every other day, or less frequently depending on travel. Swelling generally improves in her lower extremities with elevation, and with diuretic. The swelling generally worsens with dependency. The patient is cautious not to take too much furosemide due to concerns over affecting her kidney function. The patient denies any orthopnea, shortness of breath, chest discomfort. The patient has occasional palpitations, although these are relatively stable. No other complaints or concerns MADELAINE VARGAS NP, S [address] [facility],[address], [place], [address], [place] [facility] - [place] & [place] 10/08/2024 11:43:46 OBGyn Episode No OBEpisode recorded.
--- OUTSIDE RECORDS SUMMARY | 2024-10-29 12:47 | XMS_ITS | Data Portability ---
Author Organization [facility] [place] Address [address] [place] [address] Care Team Providers Care Disc Pad Knockout Worker Name Role Phone JOSH CECEJEAN MARIELisa Primary Care Provider [phone] Assessment Encounter Date Assessment Date Assessment LastModified by Organization Details LastModified Time 10/11/2023 10/11/2023 Patient Educatio n was printed, I have reviewed the Past Medical, Family, and Social Histories along with ROS and all orders in today's record, and have noted any changes. Medications, charts and records reviewed in full today. - EKG today reveals sinus bradycardia with a rate of 57 beats per minute with one Pac, poor R-wave progression, nonspecific T-wave abnormality, abnormal EKG. Blood pressure 150/72, repeat blood pressure 142/68, heart rate 70, oxygen saturation 95% on room air. Weight 170 lb. - LAST ECHO: March 07, 2022 showed [...] rare PVCs and occasional PACs. - Plan: Total service time 33 minutes. Continue current plan of care. Follow-up with PCP regarding recent fall. Keep follow-up with Neurosurgery. Follow-up in our office in one year. EKG at follow-up. - -Continue other current medications. -Continue aggressive risk factor modification. -Recommend LDL less than 100. -Encouraged regular exercise and activity. - This note was dictated using MModal software. If something is unclear, or does not make sense, please do not hesitate to contact our office at [phone] for clarification. Not available 10/11/2023 11:57:36 10/08/2024 10/08/2024 Patient Educatio n was printed, [...] activity. - This note was dictated using agencyQ software. If something is unclear, or does not make sense, please do not hesitate to contact our office at [phone] for clarification. Not available 10/08/2024 11:42:31 Plan of Treatment Reminders Order Date Submit Date Provider Last Modified By Organization Details Last Modified Time Details Appointments OV EST 30 2025 11:30A M Ezequiel Chinchilla MD Not available Not available Not available Lab CBC w/ auto diff 2024 025 [facility] ([facility] ), [address], [place], [address], 10/15/2024 09:09:24 CMP, serum or plasma 2024 025 [facility] ([facility] ), [address], [place], [address], 10/15/2024 09:09:24 magnesium , serum or plasma 2024 025 [facility] ([facility] ), [address], [place], [address], 10/15/2024 09:09:24 lipid panel w/ direct LDL, serum 2024 025 [facility] ([facility] ), [address], [place], [address], 10/15/2024 09:09:24 Referral None recorded. Procedures None recorded. Surgeries None recorded. Imaging CT, knee, w/o contrast - RIGHT KNEE- HAWA PROTOCOL- TKA SCHEDULED FOR 11/17/242024 025 [facility] (Centralized Scheduling), [address], [place], [address], 10/23/2024 07:36:03 electroca rdiogram 2024 025 [email or web address] [facility] [place], [address] [place] [address] Dr [address], [place], [address], 10/08/2024 11:38:02 electroca rdiogram 2023 024 [email or web address] Mv [facility] [place], [address] [place] [address] [address], [place], [address], 10/11/2023 11:18:48 electroca rdiogram [email or web address], [place], [address], 02/13/2023 13:48:09 Medication Orders Lasix 20 mg tablet 2022 023 [facility], [address] [place] [address] [address], [place], [place], [id number], 02/16/2023 13:22:33 Patient TargetsNo targets recorded. Patient InstructionsNo instructions recorded. Reason for Referral None Reported. Results Created Date Observation Date Name Description Value Unit Range Abnormal Flag Note LastModifiedBy Organization Detail LastModifiedTime 08/31/19 cardi ac monit or No observ ation record ed. [email or web address] Not Available 2022 15:37:41 02/14/20 elect rocar diogr am No observ ation record ed. JOSEFA [address], [place], [address], 02/13/2023 13:45:18 02/14/20 23 02/13/2023 elect rocar diogr am No observ ation record ed. [email or web address] Not Available 2022 15:37:41 10/11/19 elect rocar diogr am No observ ation record ed. JOSEFA Morejon [address], [place], [address], 10/11/2023 11:06:01 10/11/19 24 10/11/2023 elect rocar diogr am No observ ation record ed. JOSEFA [address], [place], [address], 10/11/2023 11:27:14 11/29/19 24 11/29/2023 elect rocar diogr am No observ ation record ed. [email or web address] Not Available 2023 15:56:41 10/07/19 25 10/06/2024 XR, knee No observ ation record ed. [email or web address] Mv [facility] [address] [facility] , [place], [address], 10/06/2024 14:04:31 10/09/19 elect rocar diogr am No observ ation record ed. JOSEFA Mv [address], [place], [address], 10/08/2024 11:07:05 10/09/1910/08/2024 elect rocar diogr am No observ ation record ed. JOSEFA Mv [address], [place], [address], 10/08/2024 13:57:32 Result Notes None recorded. Problems Name Problem SNOMED Code Status Onset Date Resolution Date Notes Provider Name and Address Organization Details Recorded Time Supraventricul ar tachycardia 9732921 Active 2021 Alber Moreno NP [facility],[address], [place], [address], [place] - [facility] - [place] & [place] 2 11:12:39 Essential hypertension 88427608 Active 2021 Alber Moreno NP [facility],[address], [place], [address], [place] [facility] [place] & [place] 2 11:12:46 Mitral valve regurgitation 07452265 Active 2021 Alber Moreno NP [facility],[address], [place], [address], [place] [facility] & [place] 2 11:12:51 Diastolic dysfunction 8392254 Active 2021 Alber Moreno NP [facility],[address], [place], [address], [place] [facility] [place] & [place] 2 11:13:00 Multiple premature ventricular complexes 801818761 Active 2021 Alber Moreno NP [facility],[address], [place], [address], [place] [facility] & [place] 2 11:13:09 Premature atrial contraction 120546620 Active 2021 Alber Moreno, ORDER CONTROL CLERK [facility] [address] [facility], [place], [address], [place] [facility] & [place] 2 11:13:20 Problem Notes None recorded. Procedures Surgical History Date Name Laterality Status Provider Name and Address Organization Details Recorded Time extraction of cataract completed Janneth LOPEZ - [facility] - [place] & [place] 05/02/2022 16:15:55 Hysterectomy completed Janneth LOPEZ - [facility] & [place] 05/02/2022 16:16:10 Imaging Results Imaging Date Name Status LastModified by Organization Details LastModified Time 08/31/2022 phone circuit operator completed Informati on not available 02/13/2023 15:37:41 02/13/2023 electrocardiogram completed JOSEFA [address], [place], [address], 02/13/2023 13:45:18 02/13/2023 electrocardiogram completed Informa tion not available 02/13/2023 15:37:41 10/11/2023 electrocardiogram completed JOSEFA [address], [place], [address], 10/11/2023 11:06:01 10/11/2023 electrocardiogram completed JOSEFA [address], [place], [address], 10/11/2023 11:27:14 11/29/2023 electrocardiogram completed [email or web address] Informa tion not available 11/29/2023 15:56:41 10/06/2024 XR, knee completed [email or web address] [address] [place], [address], 10/06/2024 14:04:31 10/08/2024 electrocardiogram completed [address], [place], [address], 10/08/2024 11:07:05 10/08/2024 electrocardiogram completed [address], [place], [address], 10/08/2024 13:57:32 Procedure Notes None recorded. Medical Equipment None Reported. Allergies Allergen ID Allergen Name Allergen Category Reaction Reaction Severity Criticality Documentation Date Start Date Code Code System Note Provider Name and Address Organization Details Recorded Time 86075 levofloxa tarah medicatio n Not available Not available Not available 05/02/2022 06958 RxNorm Janneth ulloa, JESSICA - [facility] & [place] 2 16:14:01 01947 enoxapari n medicatio n Not available Not available Not available 05/02/2022 64349 RxNorm Janneth ulloa, JESSICA - [facility] & [place] 2 16:14:09 69917 azithromy tarah medicatio n Not available Not available Not available 05/02/2022 30945 RxNorm Janneth ulloa, JESSICA - [facility] & [place] 2 16:14:14 77506 cephalexi n medicatio n Not available Not available Not available 05/02/2022 2231 RxNorm Janneth ulloa, JESSICA - [facility] & [place] 2 16:14:19 Medications Name Sig Start Date Stop [...] rate Systolic blood pressure Diastolic blood pressure Systolic blood pressure Diastolic blood pressure Provider Name and Address Organization Details Last Updated DateTime 3 165.1 cm 27.8 kg/m2 13132.9 3 g 93 % 93 % 57 /min 132 mm[Hg] 64 mm[Hg] 124 mm[Hg] 62 mm[Hg] Maureen monae [place] - [facility] - [place] & [place] 3 13:41:40 Date Recorded Body weight Oxygen saturation Oxygen saturation in Arterial blood by Pulse oximetry Heart rate Respiratory rate Systolic blood pressure Diastolic blood pressure Systolic blood pressure Diastolic blood pressure Provider Name and Address Organization Details Last Updated DateTime 2 75733.2 3 g 94 % 94 % 65 /min 18 /min 138 mm[Hg] 70 mm[Hg] 138 mm[Hg] 72 mm[Hg] Janneth Brown [facility] & [place] 2 16:13:42 Date Recorded Body height Body mass index (BMI) Body weight Oxygen saturation Oxygen saturation in Arterial blood by Pulse oximetry Heart rate Systolic blood pressure Diastolic blood pressure Provider Name and Address Organization Details Last Updated DateTime 4 165.1 cm 28.3 kg/m2 70773.7 g 95 % 95 % 70 /min 150 mm[Hg] 72 mm[Hg] Maureen White letha [facility] & [place] 4 11:12:00 Date Recorded Body height Body mass index (BMI) Body weight Oxygen saturation Oxygen saturation in Arterial blood by Pulse oximetry Heart rate Systolic blood pressure Diastolic blood pressure Provider Name and Address Organization Details Last Updated DateTime 5 165.1 cm 28.7 kg/m2 68173.3 2 g 99 % 99 % 54 /min 130 mm[Hg] 62 mm[Hg] Anjali Fulton [facility] & [place] 5 10:54:35 Social History Question Answer Notes LastModified by Organizat ion Details LastModified Time Tobacco Smoking Status Never Smoker Janneth Brown [facility] & [place] 05/02/2022 16:15:45 What Is Your Level Of Alcohol Consumption? None Information not available 05/02/2022 Do You Use Any Illicit Or Recreational Drugs? No [email or web address] Information not available 05/02/2022 Sex: Unknown Functional Status None recorded. Mental Status None recorded. Family History Relationship Description Onset Age of this Age Resolved Age Notes LastModified by Organization Details LastModified Time Father No current problems or disability Not available 04/15 16:15:35 Mother No current problems or disability [email or web address] Not available 04/15 16:15:35 Medical History Condition Response Hyperlipidemia Y Cancer Y Shortness of Breath Y Heart Disease Y Arrhythmia Y Hypertension Y Gynecological HistoryNo gynecological history recorded. Obstetrics History GPAL:G 0 P 0 0 0 0 Past Encounters Encounter ID Performer Location Encounter Start Date Encounter Closed Date Diagnosis/Indication Diagnosis SNOMED-CT Code Diagnosis ICD10 Code Diagnosis Note [id number] Alber Moreno NP [address] [place], [place] [address] 05/02/2022 13:19:42 05/02/2022 13:46:21 Supraventricular tachycardia 3008076 I47.1 Essential hypertension 35934731 I10 Mitral ariela ve regurgitation 10067665 I34.0 Diastolic dysfunction 35 56341 I51.9 Multiple p remature ventricular complexes 603267040 I49.3 Premature atrial contraction 650300889 I49.1 [id number] Alber Moreno NP [address] [place] [address] 6 02/13/2023 13:19:48 02/13/2023 13:46:53 Supraventricular tachycardia 6069316 I47.1 Essential hypertension 49865833 I10 Mitral ariela ve regurgitation 78280170 I34.0 Diastolic dysfunction 35 17040 I51.9 Multiple p remature ventricular complexes 513606744 I49.3 Premature atrial contraction 118525526 I49.1 [id number] MADELAINE VARGAS NP, S [address] [place] [address] 6 10/11/2023 10:03:49 10/11/2023 11:47:56 Supraventricular tachycardia 6521084 I47.10 Essential hypertension 23635186 I10 Mitral ariela ve regurgitation 39176010 I34.0 Diastolic dysfunction 35 21258 I51.9 Multiple p remature ventricular complexes 769902296 I49.3 Premature atrial contraction 235051432 I49.1 [id number] MADELAINE VARGAS NP, S [address] [place] [address] 6 10/08/2024 10:43:33 10/08/2024 11:38:39 Essential hypertension 73336497 I10 Supraventr icular tachycardia 0822444 I47.10 Mitral ariela ve regurgitation 99981360 I34.0 Diastolic dysfunction 35 70785 I51.9 Multiple p remature ventricular complexes 092112440 I49.3 Premature atrial contraction 269543540 I49.1 [id number] MD MARLENE Ochoa [facility] [address] [place] [address] 10/21/2024 09:47:24 10/21/2024 11:30:40 Osteoarthritis of right knee joint 3161598210 67498 M17.11 Health Concerns Section Related Observation LastModified by Organization Detai ls LastModified Time None Recorded Concern Status LastModified by Organization Details LastModified Time None Recorded Advance Directives Directive None Recorded Payers Encounter Date Sequence Insurance Name Policy Number Policy Bethea Covered Member ID Bethea Member ID Guarantor Name 05/02/2022 1 [place] Delmy Jorgensen Jose Antonio [id number] Delmy Jorgensen [place] 05/02/2022 2 [place] [id number] Delmy Jorgensen Jose Antonio [id number] Delmy Jorgensen Jose Antonio 02/13/2023 1 [place] Delmy Brady [id number] Delmy Jorgensen [place] 02/13/2023 2 [place] [id number] Delmy Jorgensen Jose Antonio [id number] Delmy Jorgensen Jose Antonio 10/11/2023 1 [place] Delmy Jorgensen [place] [id number] Delmy Jorgensen Brady 10/11/2023 2 [place] [id number] Delmy Jorgensen Jose Antonio [id number] Delmy Jorgensen Jose Antonio 10/08/2024 1 [place] Delmy Jorgensen Jose Antonio [id number] Delmy Jorgensen [place] 10/08/2024 2 [place] [id number] Delmy Jorgensen Jose Antonio [id number] Delmy Jorgensen Jose Antonio 10/21/2024 1 [place] Delmy Jorgensen Jose Antonio [id number] Delmy Jorgensen [place] 10/21/2024 2 [place] [id number] Delmy Jorgensen Jose Antonio [id number] Delmy Brady Notes Date Note Type Note Provider Name and Address Organization Details Recorded Time 05/02/2022 text/html Patient here for routine follow-up. No complaints today. Alber Moreno NP [address] [facility],[address], [place], [address], [facility] & [place] 05/03/2022 07:43:29 02/13/2023 text/html no complaints. H ere for routine follow-up. Alber Moreno NP [address] [facility],[address], [place], [address], [facility] & [place] 02/13/2023 15:38:39 10/11/2023 text/html Venus is a 78-year-old female who presents today in follow-up. The patient has history significant for hypertension, supraventricular tachycardia,, PVCs, PACs, mitral regurgitation, and diastolic dysfunction of the left ventricle. Since our last visit, the patient reports that she has been doing reasonably well from cardiovascular standpoint. The patient has rare, mild, transient tachycardia like palpitations. The patient experienced a fall earlier this week and she has still a little sore. The patient did not experience an injury according to her report. The patient has been bearing weight with no residual symptoms apart from some mild soreness. The patient was walking her dog when she got caught up in a leash and fell. The fall was witnessed by her son who promptly helped her. No loss of consciousness. No other complaints or concerns. MADELAINE VARGAS NP, S [address] [place] [address],[address], [place], [address], [facility] - [facility] & [place] 10/11/2023 12:00:06 10/08/2024 text/html Venus is a 79-year-old female [...] complaints or concerns MADELAINE VARGAS NP, S [address] [place] [address],[address], [place], [address], [place] [facility] & [place] 10/08/2024 11:43:46 10/21/2024 text/html 79 year old fema le here today for right knee pain ongoing since July 2024-- no known injury. She states pain is anterior and posterior aspect. She has not tried NSAIDS. X-rays of right knee taken at [facility] 3.20.25. Agus Cantu MD [address] [place] [address] Drive,[address], [place], [address], [place] [facility] [place] & [place] 10/22/2024 08:09:41 OBGyn Episode No OBEpisode recorded.
--- NOTE | 2024-10-29 12:48 | MM_ITS ---
PROCEDURE INFORMATION: Exam: MG Bilateral Screening 3D Mammography Exam date and time: 10/29/2024 1:04 PM Age: 79 years old Clinical indication: Screening examination TECHNIQUE: Imaging protocol: Bilateral Screening tomosynthesis and 2D mammography including computer-aided detection (CAD) when performed. COMPARISON: 1. MG MM DIG SCREENING MAMM BI W/CAD 06/11/2023 10:29 AM 2. MG MM DIG SCREENING MAMM BI W/CAD 06/05/2022 10:18 AM FINDINGS: MAMMOGRAPHY: Breast composition: The breasts are heterogeneously dense, which may obscure small masses. Mass: No suspicious masses. Architectural distortion: None. Calcifications: No suspicious calcifications. Asymmetric density: None. Skin thickening: None. Axillary adenopathy: None. IMPRESSION: No mammographic evidence of malignancy. Annual screening is recommended unless otherwise clinically indicated. ASSESSMENT: BI-RADS Category 1: Negative.
--- OUTSIDE RECORDS SUMMARY | 2024-10-29 12:48 | XMS_ITS | Continuity of Care Document ---
Author Organization [facility] Address [address] [place] [address] Care Team Providers Care Child Caregiver Private Home Name Role Phone IVÁN MORENO Primary Care Provider Assessment Encounter Date Assessment Date Assessment LastModified by Organization Details LastModified Time 09/29/2024 09/29/2024 ASSESSMENT: Ms. Shetty is a pleasant 79-year-old female status post T10 to iliac decompression and fusion on 06/27/2022, L5-S1 fusion revision with S1 joint fusion revision on 06/29/2023 and revision of iliac fixation on 05/16/[address] Foster. She states that she has noticed improvement in her left lower extremity radiculopathy but she now has some upper lumbar low thoracic pain that is nonradiating in nature. She is currently dealing with a right torn ligament on right knee and she is being assessed by Dr. Rangel. She states she has noticed more difficulty in her walking as she feels like something is pulling down her right leg. She uses a cane. Her bilateral hip x-rays show mild to moderate degeneration. Patient denies saddle paresthesias. Dr. Foster would like to see patient back in a year after her surgery in May [address] scan to evaluate hardware and fusion. He advised her to continue with conservative measures as she is still fusing a healing. Patient verbalized understanding and is agreeable to this plan. Patient has no further questions or concerns at this time and is satisfied with this plan of care. Patient seen by surgeon and myself. IMAGING: I personally reviewed the images with Dr. Foster and read the radiologist report. Lumbar x-ray on 09/29/2024 at [facility] show Hardware in stable position with no signs of complications PLAN: Follow-up in May [address] w/o. [email or web address] Not available 09/29/2024 13:33:21 Plan of Treatment Reminders Order Date Submit Date Provider Last Modified By Organization Details Last Modified Time Details Appointments CT SCAN 2024 11:40A M ct_scan Not available Not available Not available RECHECK r 2024 01:15P M JERRY FOSTER MD Not available Not available Not available Lab None recorded . Referral None recorded . Procedures None recorded . Surgeries None recorded . Imaging None recorded . Medication Orders None recorded . Patient TargetsNo targets recorded. Patient InstructionsNo instructions recorded. Reason for Referral None Reported. Results Created Date Observation Date Name Description Value Unit Range Abnormal Flag Note LastModifiedBy Organization Detail LastModifiedTime 09/30/1909/29/2024 XR, lumbo sacra l spine , 2 or [address] [address] [place] f[place] Name: TINO falk : [phone] Orderi ng Provid er: CARLOS MANUEL FOSTER EXAM DATE: 2024 EXAM: XR LUMBAR AP/LAT CLINIC AL INFORM ATION: Back pain. IMAGES PROVID ED: AP, latera l and coned down views of the lumbar spine. COMPAR MICHELLE: 2023 FINDIN GS: Previo us taper and floater ior fusion extend ing from T10 to S2. L5-S1 malali gnment is again noted and stable . No hardwa re compli cation . No loosen ing is identi fied. Cannul ated screws bita se the sacroi liac joints . No radiog raphic eviden ce of injury is noted. IMPRES CARLOS: Previo us thorac olumba r sacral fusion with no compli cation s indica arash Interp reted By: Joaquin Hernandez MD Electr onical ly Signed By: Joaquin Hernandez MD on 025 12:38 PM [email or web address] [facility] [address] [place] [address], [phone], 09/29/2024 12:57:51 09/30/19 25 09/29/2024 XR, hip, bilat eral, 3 or 4 view [place] [id number] Wesley falk Name: TINO falk : [phone] Orderi ng Provid er: NICLuzma Giovana KRISTIN EXAM DATE: 2024 EXAM: XR ANGELA HIPS, 3 OR 4 VWS COMPAR MICHELLE: 023 HISTOR Y: Bilate ral hip pain. FINDIN GS: There are mild to modera te degene rative change s in both hips. There is modera te margin al spurri ng. The joint space is narrow ed. There are mild degene rative change s in the SI joints . There is no acute fractu re. There is prior lumbos acral fusion . There is lucenc y adjace nt to the left iliac screw. IMPRES CARLOS: 1. There are mild to modera te degene rative change s in the hips. Interp reted By: Radha love MD Electr onical ly Signed By: Radha love MD on 025 12:46 PM [email or web address] [facility] [address] [place] [address], [phone], 09/29/2024 12:57:51 Result Notes None recorded. 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 Procedures Surgical History Date Name Laterality Status Provider Name and Address Organization Details Recorded Time 02/03/20 22 Injection, Transforaminal Epidural completed DAYANARA MAHARAJ MD [address] [place], [address], [facility] 02/02/2022 10:10:09 hysterectomy completed [facility] 11/24/2021 10:45:49 cataract surgery completed [facility] 11/24/2021 10:46:05 ligation of fallopian tube completed [facility] 11/24/2021 10:46:13 Imaging Results None recorded. Procedure Notes None recorded. Medical Equipment None Reported. Allergies Allergen ID Allergen Name Allergen Category Reaction Reaction Severity Criticality Documentation Date Start Date Code Code System Note Provider Name and Address Organization Details Recorded Time 082442 cephalexi n medicatio n Not available Not available Not available 05/21/20242021 [facility] 4 08:22:49 521888 azithromy tarah medicatio n Not available Not available Not available 05/21/20242021 [facility] 4 08:22:49 138753 enoxapari n medicatio n Not available Not available Not available 05/21/20242021 [facility] 4 08:22:49 029083 levofloxa tarah medicatio n Not available Not available Not available 05/21/20242021 33119 RxNorm [facility] 4 08:22:49 Medications Name Sig Start Date Stop Date Status Note LastModified by Organization Details LastModified Time cyclobenzap rine 10 mg tablet Take 1 tablet 3 times a day by oral route as needed. 10/26 completed Not Available Not Available Not Available amoxicillin 500 mg capsule TAKE 1 CAPSULE TWICE A DAY BY ORAL ROUTE FOR 7 DAYS. 10/26 completed Not Available Not Available Not Available Percocet 7.5 mg-325 mg tablet Take 1 tablet every 6 hours by oral route as needed. 2023 active Not Available Not Available Not Avai lable clindamycin HCl 300 mg capsule TAKE ONE CAPSULE BY MOUTH THREE TIMES DAILY FOR 7 DAYS active Not Available Not Available No t Available ibuprofen 800 mg tablet TAKE ONE TABLET BY MOUTH THREE TIMES DAILY --TAKE WITH FOOD-- active Not Available Not Available No t Available fluconazole 150 mg tablet active Not Available Not Available Not Available meloxicam 15 mg tablet TAKE ONE TABLET BY MOUTH EVERY DAY 11/24 completed Not Available Not Available Not Available prednisone 20 mg tablet TAKE ONE (1) TABLET TWICE A DAY BY ORAL ROUTE FOR FIVE (5) DAYS. 10/26 completed Not Available Not Available Not Available fluorouraci l 5 % topical cream 1(ONE) APPLICATI ON(S) TOPICAL 2(TWO) TIMES A DAY. APPLY TO LEFT UPPER EXTREMITY , RIGHT UPPER EXTREMITY active Not Available Not Available No t Available Debrox 6.5 % ear drops INSTILL FIVE (5) DROPS INTO AFFECTED EAR(S) BY OTIC ROUTE TWO (2) TIMES PER DAY FOR FIVE (5) DAYS active Not Available Not Available No t Available acetaminoph en 300 mg-codeine 30 mg tablet TAKE ONE (1) TABLET TWICE A DAY BY ORAL ROUTE NEEDED FOR 7 DAYS. active Not Available Not Available No t Available sulfamethox azole 800 mg-trimetho prim 160 mg tablet TAKE ONE TABLET BY MOUTH TWICE DAILY FOR 7 DAYS 11/24 completed Not Available Not Available Not Available triamcinolo ne acetonide 0.1 % topical cream APPLY ONE (1) APPLICATI ON(S) TOPICAL 2(TWO) TIMES A DAY active Not Available Not Available No t Available ciclopirox 8 % topical solution apply a thin layer TO THE affected nail(s) ONCE DAILY 10/26 completed Not Available Not Available Not Available meloxicam 7.5 mg tablet TAKE ONE TABLET BY MOUTH EVERY DAY active Not Available Not Available No t Available famotidine 20 mg tablet TAKE ONE TABLET BY MOUTH TWICE DAILY 10/26 completed Not Available Not Available Not Available sulfacetami de sodium 10 % eye drops active Not Available Not Available Not Available benzonatate 100 mg capsule TAKE 1 CAPSULE BY MOUTH TWICE DAILY NEEDED 10/26 completed Not Available Not Available Not Available erythromyci n 5 mg/gram (0.5 %) eye ointment 11/24 completed Not Available Not Available Not Available gabapentin 300 mg capsule TAKE 1 CAPSULE BY MOUTH EVERY MORNING AND TAKE ONE (1) CAPSULE EVERY EVENING active Not Available Not Available No t Available mupirocin 2 % topical ointment APPLY A SMALL AMOUNT TO THE AFFECTED AREA 3 TIMES PER DAY active Not Available Not Available No t Available furosemide 20 mg tablet TAKE ONE [...] ONE (1) DOSE PACKET BY ORAL ROUTE. active Not Available Not Available No t Available cefdinir 300 mg capsule TAKE ONE (1) CAPSULE EVERY 12 HOURS BY ORAL ROUTE FOR 7 DAYS. active Not Available Not Available No t Available fluticasone propionate 50 mcg/actuati on nasal spray,suspe nsion INSTILL ONE (1) SPRAY IN EACH NOSTRIL EVERY DAY 10/26 completed Not Available Not Available Not Available doxycycline hyclate 100 mg tablet TAKE ONE TABLET BY MOUTH TWICE DAILY FOR 7 DAYS -- FINISH ALL MEDICINE -- 10/26 completed Not Available Not Available Not Available atenolol 50 mg tablet TAKE ONE TABLET BY MOUTH EVERY DAY active Not Available Not Available No t Available benazepril 10 mg-hydrochl orothiazide 12.5 mg tablet TAKE ONE (1) TABLET EVERY DAY BY ORAL ROUTE. active Not Available Not Available No t Available oxycodone 5 mg tablet TAKE 1 TABLET BY MOUTH EVERY SIX (6) HOURS NEEDED PAIN SCALE 7-10 active Not Available Not Available No t Available cyclobenzap rine 5 mg tablet active Not Available Not Available Not Available Premarin 0.625 mg/gram vaginal cream INSERT 0.25 APPLICATO RSFUL TWICE A WEEK BY VAGINAL ROUTE AT BEDTIME. active Not Available Not Available No t Available nitrofurant oin monohydrate /macrocryst als 100 mg capsule TAKE ONE CAPSULE BY MOUTH TWICE DAILY FOR 10 DAYS -- FINISH ALL MEDICINE -- --TAKE WITH FOOD-- 11/24 completed Not Available Not Available Not Available diclofenac 1 % topical gel apply topically 4 grams EVERY 6 HOURS NEEDED -- FOR EXTERNAL USE ONLY-- active Not Available Not Available No t Available Vitals Date Recorded Body height Body mass index (BMI) Body weight Systolic blood pressure Diastolic blood pressure Provider Name and Address Organization Details Last Updated DateTime 09/29/2024 167.64 cm 28.6 kg/m2 11150.85 g 130 mm[Hg] 74 mm[Hg] Jossie Orozco [facility] 13:03:36 Social History Question Answer Notes LastModified by Organizat ion Details LastModified Time Tobacco Smoking Status Never Smoker Jossie Orozco [facility] 11/24/2021 10:45:39 What Was The Date Of Your Most Recent Tobacco Screening? 01/06/2022 [email or web address] Information not available 01/06/2022 Sex: Unknown Functional Status None recorded. Mental Status None recorded. Family History Relationship Description Onset Age of this Age Resolved Age Notes LastModified by Organization Details LastModified Time Unspecified Relation Malignant neoplastic disease [email or web address] Not available 11/24 10:45:11 Unspecified Relation Diabetes mellitus [email or web address] Not available 11/24 10:45:17 Unspecified Relation Hypertensive disorder [email or web address] Not available 11/24 10:45:22 Unspecified Relation Myocardial infarction [email or web address] Not available 11/13 10:45:27 Unspecified Relation Cerebrovascu lar accident [email or web address] Not available 10:45:33 Medical History Condition Response Cancer Y Hypertension Y High Cholesterol Y Gynecological HistoryNo gynecological history recorded. Obstetrics History GPAL:G 0 P 0 0 0 0 Past Encounters Encounter ID Performer Location Encounter Start Date Encounter Closed Date Diagnosis/Indication Diagnosis SNOMED-CT Code Diagnosis ICD10 Code Diagnosis Note [id number] MORGAN ROJAS, OPTICAL MANAGER [facility] [address] [place] [address] 09/29/2024 12:40:28 09/30/2024 05:38:27 Low back pain 378802922 M54.50 Health Concerns Section Related Observation LastModified by Organization Detai ls LastModified Time None Recorded Concern Status LastModified by Organization Details LastModified Time None Recorded Payers Encounter Date Sequence Insurance Name Policy Number Policy Bethea Covered Member ID Bethea Member ID Guarantor Name 09/29/2024 1 [place] Delmy Brady [id number] Delmy Brady 09/29/2024 2 [place] [id number] Delmy Brady [id number] Delmy Brady Notes Date Note Type Note Provider Name and Address Organization Details Recorded Time 09/29/2024 text/html Ms. Shetty is a pleasant 79-year-old female status post T10 to iliac decompression and fusion on 06/27/2022, L5-S1 fusion revision with S1 joint fusion revision on 06/29/2023 and revision of iliac fixation on 05/16/[address] Foster. She states that she has noticed improvement in her left lower extremity radiculopathy but she now has some upper lumbar low thoracic pain that is nonradiating in nature. She is currently dealing with a right torn ligament on right knee and she is being assessed by Dr. Desai's. She states she has noticed more difficulty in her walking as she feels like something is pulling down her right leg. She uses a cane. Her bilateral hip x-rays show mild to moderate degeneration. MORGAN ROJAS, OPTICAL MANAGER [address] [place], [address], [facility] 09/29/2024 13:33:46 OBGyn Episode No OBEpisode recorded.
--- OUTSIDE RECORDS SUMMARY | 2024-10-29 12:48 | XMS_ITS | Continuity of Care Document ---
Author Organization [facility] Address [address] [place] [address] [place] [address] Care Team Providers Care Qa Engineer Name Role Phone IVÁN MORENO Primary Care Provider Assessment No assessment recorded. Plan of Treatment Reminders Order Date Submit Date Provider Last Modified By Organization Details Last Modified Time Details Appointments OV EST 30 2025 11:30A M Ezequiel Chinchilla MD Not available Not available Not available Lab None recorded. Referral None recorded. Procedures None recorded. Surgeries None recorded. Imaging CT, knee, w/o contrast - RIGHT KNEE- HAWA PROTOCOL- TKA SCHEDULED FOR 11/17/242024 [facility] genesis Osborne (Centralized Scheduling)[address] , [place], [address], 10/23/2024 07:36:03 Medication Orders None recorded. Patient TargetsNo targets recorded. Patient InstructionsNo instructions recorded. Reason for Referral None Reported. Results Created Date Observation Date Name Description Value Unit Range Abnormal Flag Note LastModifiedBy Organization Detail LastModifiedTime 10/07/1910/06/2024 XR, knee No observ ation record ed. isai Morejon [address] [place], [address], 10/06/2024 14:04:31 10/09/19 25 elect ramona gaygr am No observ ation record ed. JOSEFA Morejon [facility] [address] [place] [address] [address], [place], [address], 10/08/2024 11:07:05 10/09/19 25 10/08/2024 elect ramona diogr am No observ ation record ed. JOSEFA Morejon [address], [place], [address], 10/08/2024 13:57:32 Result Notes None recorded. Problems Name Problem SNOMED Code Status Onset Date Resolution Date Notes Provider Name and Address Organization Details Recorded Time Supraventricul ar tachycardia 8830208 Active 2021 Alber Moreno, LIVAN [address], [place], [address], [place] [facility] - [place] & [place] 2 11:12:39 Essential hypertension 31903614 Active 2021 Alber Moreno NP [facility] [address] [facility],[address], [place], [address], [place] [facility] & [place] 2 11:12:46 Mitral valve regurgitation 19695976 Active 2021 Alber Moreno NP [facility] [address], [place], [address], [place] [facility] - [facility] & [place] 2 11:12:51 Diastolic dysfunction 2917851 Active 2021 Alber Moreno NP [facility] [address], [place], [address], [place] [facility] - [place] & [place] 2 11:13:00 Multiple premature ventricular complexes 300374620 Active 2021 Alber Moreno NP [address], [place], [address], [place] [facility] - [place] & [place] 2 11:13:09 Premature atrial contraction 211446050 Active 2021 Alber Moreno NP [facility] [address], [place], [address], [place] [facility] - [place] & [place] 2 11:13:20 Problem Notes None recorded. Procedures Surgical History Date Name Laterality Status Provider Name and Address Organization Details Recorded Time extraction of cataract completed Janneth DUEÑAS [facility] & [place] 05/02/2022 16:15:55 Hysterectomy completed Janneth DUEÑAS [facility] & [place] 05/02/2022 16:16:10 Imaging Results None recorded. Procedure Notes None recorded. Medical Equipment None Reported. Allergies Allergen ID Allergen Name Allergen Category Reaction Reaction Severity Criticality Documentation Date Start Date Code Code System Note Provider Name and Address Organization Details Recorded Time 90962 levofloxa tarah medicatio n Not available Not available Not available 05/02/2022 36525 RxNorm JESSICA Mccarthy [facility] & [place] 2 16:14:01 37812 enoxapari n medicatio n Not available Not available Not available 05/02/2022 47447 RxNorm JESSICA Mccarthy [facility] & [place] 2 16:14:09 02504 azithromy tarah medicatio n Not available Not available Not available 05/02/2022 75190 RxNorm JESSICA Mccarthy [facility] & [place] 2 16:14:14 70797 cephalexi n medicatio n Not available Not available Not available 05/02/2022 2231 RxNorm JESSICA Mccarthy [facility] & [place] 2 16:14:19 Medications Name Sig Start Date [...] Not Available Not Available Not Available Vitals None Recorded Social History Question Answer Notes LastModified by Organizat ion Details LastModified Time Tobacco Smoking Status Never Smoker Janneth Brown [facility] [place] [facility] & [place] 05/02/2022 16:15:45 What Is Your Level Of Alcohol Consumption? None Information not available 05/02/2022 Do You Use Any Illicit Or Recreational Drugs? No [email or web address] Information not available 05/02/2022 Sex: Unknown Functional Status None recorded. Mental Status None recorded. Family History Relationship Description Onset Age of this Age Resolved Age Notes LastModified by Organization Details LastModified Time Father No current problems or disability [email or web address] Not available 04/15 16:15:35 Mother No current problems or disability [email or web address] Not available 04/15 16:15:35 Medical History Condition Response Shortness of Breath Y Hyperlipidemia Y Heart Disease Y Cancer Y Arrhythmia Y Hypertension Y Gynecological HistoryNo gynecological history recorded. Obstetrics History GPAL:G 0 P 0 0 0 0 Past Encounters Encounter ID Performer Location Encounter Start Date Encounter Closed Date Diagnosis/Indication Diagnosis SNOMED-CT Code Diagnosis ICD10 Code Diagnosis Note [id number] MADELAINE VARGAS NP, S MV [address] [place] [address] 10/08/2024 10:43:33 10/08/2024 11:38:39 Essential hypertension 97307050 I10 Supraventr icular tachycardia 0755040 I47.10 Mitral ariela ve regurgitation 91770238 I34.0 Diastolic dysfunction 35 35664 I51.9 Multiple p remature ventricular complexes 536653156 I49.3 Premature atrial contraction 840365536 I49.1 [id number] [facility] [address] [place] [address] 10/21/2024 09:47:24 10/21/2024 11:30:40 Osteoarthritis of right knee joint 4006965195 50311 M17.11 Health Concerns Section Related Observation LastModified by Organization Detai ls LastModified Time None Recorded Concern Status LastModified by Organization Details LastModified Time None Recorded Payers Encounter Date Sequence Insurance Name Policy Number Policy Bethea Covered Member ID Bethea Member ID Guarantor Name 10/21/2024 1 [place] Delmy Brady [id number] Delmy Brady 10/21/2024 2 [place] [id number] Delmy Brady [id number] Delmy Brady Notes Date Note Type Note Provider Name and Address Organization Details Recorded Time 10/21/2024 text/html 79 year old female here today for right knee pain ongoing since July 2024-- no known injury. She states pain is anterior and posterior aspect. She has not tried NSAIDS. X-rays of right knee taken at [facility] 3.20.25. Agus Cantu MD [address] [place] [address],[address], [place], [address], [facility] [place] 10/22/2024 08:09:41 OBGyn Episode No OBEpisode recorded.
--- OUTSIDE RECORDS SUMMARY | 2024-10-29 12:48 | XMS_ITS | Data Portability ---
Author Organization JESSICA JANETTE Teixeira BRONX CLOSED Address [address] [facility] [facility] [address] [place] [address] Care Team Providers [facility] Technician Name Role Phone JOSH CECEJEAN MARIELisa Primary Care Provider [phone] Assessment Encounter Date Assessment Date Assessment LastModified by Organization Details LastModified Time 01/31/2024 01/31/2024 ASSESSMENT:Silvana Brady is a 78-year-old female here, accompanied by her son, after last being seen on 08/02/2023 for follow-up after having an L5-S1 fusion revision with SI joint fusion revision on 06/29/[address] Patel. She states that at the end of June she rolled over in bed one night while sleeping and heard a pop and began to experience pain the next day. The pain was initially in the lateral aspect of her left distal lower extremity only. She began to ambulate, in an attempt to relieve her discomfort. A few days later, she noticed an aching pain in her lower back that began to radiate down the posterior aspect of her right leg. Prolonged sitting worsens her pain. During her last visit PT was offered but she refused. Now her symptoms continue to worsen, having severe constant pain of 8/10 accompanied with left leg numbness and weakness. It has been difficult for her to even walk short distances. Patient denies any bowel or bladder control issues, no saddle paresthesias. Dr. Patel would like for patient to get a CT thoracic and lumbar to assess for questionable screw integrity in her lumbar spine. Patient verbalized understanding and is agreeable to this plan. Patient has no further questions or concerns at this time and is satisfied with this plan of care. Patient seen by surgeon and myself. IMAGING: I personally reviewed the images with Dr. Patel and read the radiologist report. Lumbar x-ray on 01/31/2024 at shows questionable screw integrity on the lumbar spine. PLAN: CT thoracic and lumbar to assess for questionable screw integrity in her lumbar spine. [email or web address] Not available 01/31/2024 13:04:55 05/30/2024 05/30/2024 Ms. Brady presents today status post Revision of Iliac Fixation 05/16. Fawad removed with no issues or complications. All questions answered. [email or web address] Not available 05/30/2024 10:35:23 06/30/2024 06/30/2024 Mrs. Brady is a 79-year-old female status post L5-S1 fusion revision. Her x-rays today look great. I gave them a printed copy. I encouraged her to stick with the same restrictions. She will continue to use her bone stimulator. I plan on seeing her back in 3 months with repeat x-rays of the lumbar spine. They understand to call if she has any sooner questions or concerns. [email or web address] Not available 06/30/2024 15:20:27 09/29/2024 09/29/2024 ASSESSMENT: Ms. Shetty is a pleasant 79-year-old female status post T10 to iliac decompression and fusion on 06/27/2022, L5-S1 fusion revision with S1 joint fusion revision on 06/29/2023 and revision of iliac fixation on 05/16/[address] Patel. She states that she has noticed improvement in her left lower extremity radiculopathy but she now has some upper lumbar low thoracic pain that is nonradiating in nature. She is currently dealing with a right torn ligament on right knee and she is being assessed by Dr. Desai'camacho. She states she has noticed more difficulty in her walking as she feels like something is pulling down her right leg. She uses a cane. Her bilateral hip x-rays show mild to moderate degeneration. Patient denies saddle paresthesias. Dr. Patel would like to see patient back in [...] I personally reviewed the images with Dr. Patel and read the radiologist report. Lumbar x-ray on 09/29/2024 at [facility] show Hardware in stable position with no signs of complications PLAN: Follow-up in May [address] w/o. [email or web address] Not available 09/29/2024 13:33:21 Plan of Treatment Reminders Order Date Submit Date Provider Last Modified By Organization Details Last Modified Time Details Appointments CT SCAN 2024 11:40A M ct_scan Not available Not available Not available RECHECK r 2024 01:15P M JERRY PATEL MD Not available Not available Not available Lab None recorded . Referral None recorded . Procedures None recorded . Surgeries None recorded . Imaging None recorded . Medication Orders None recorded . Patient TargetsNo targets recorded. Patient InstructionsNo instructions recorded. Reason for Referral None Reported. Results Created Date Observation Date Name Description Value Unit Range Abnormal Flag Note LastModifiedBy Organization Detail LastModifiedTime 01/31/20 24 01/31/2024 XR, lumbo sacra l spine , 2 or [address] [place] [address] Patiavel falk Name: TINO falk : 946 Ramo falk 46 Orderi ng Provid er: CARLOS MANUEL PATEL EXAM DATE: 2023 EXAM: XR LUMBAR AP/LAT HISTOR Y: Low back pain COMPAR MICHELLE: 024 FINDIN GS: There is prior insert operator ior fusion of the thorac olumba r spine extend ing at least from T10 throug h the sacrum with iliac screws in place. There are associ ated kathy ctomie s. There is also discec natividad and interb mike graft at L1-L2, L4-L5 and L5-S1. There is a fractu re of one of the screws at the S1 level. There is mild lucenc y adjace nt to the iliac screws . No osseou s fractu re is identi fied. There is mild to modera te anteri or margin al spurri ng. IMPRES CARLOS: 1. There is prior insert operator ior fusion extend ing from at least T10 throug h the sacrum . One of the sacral screws appear s fractu red, and there is appare nt lucenc y adjace nt to the iliac screws . Interp reted By: Radha love MD Electr onical ly Signed By: Radha love MD on 024 10:17 AM [email or web address] [facility] Radiology [facility] [address] [place] [address], [phone], 02/02/2024 12:26:54 02/04/20 24 02/04/2024 CT, thora cic spine , w/o contr ast [facility] [address] [place] [address] Ramo falk Name: TINO falk : 946 Ramo falk 46 Orderi ng Provid er: CARLOS MANUEL Akhtar JORGE EXAM DATE: 2023 EXAM: CT THORAC IC W/O CONTRA ST HISTOR Y: 78-yea r-old female with back pain and prior lumbar fusion . COMPAR MICHELLE: CT dated 023 TECHNI QUE: 1 mm direct axial slices were obtain ed throug h the lumbar spine. Comput er-gen erated axial, sagitt al, and duckworth l recons tructi ons are also provid ed for interp retati on. FINDIN GS: The ramo t is status post insert operator ior fusion from T10 extend ing into the lumbar spine. There is beam harden ing artifa ct from the pedicl e screws and insert operator ior fusion hardwa re. There is lucenc y adjace nt to the left T10 pedicl e screw which may repres ent loosen ing. There is diffus e kyphos is and dextro curvat ure of the thorac ic spine. There is no compre ssion fractu re. There is severe latera l and anteri or margin al osteop hytic spurri ng. No pathol ogic lesion is identi fied in the thorac ic spine. There is osseou s fusion at T6-T7. At T7-T8, there is a broad- based disc protru carlos extend ing into the neural forami na. There is mild centra l canal stenos is. There is mild bilate ral neural forami nal narrow ing. There are minima l to mild disc bulges in the remain ing levels of the thorac ic spine. There is no centra l canal stenos is. There is modera te bilate ral neural forami nal narrow ing at T1-T2, and mild neural forami nal narrow ing at T2-T3 and T3-4. At C6-C7, there is severe centra l spurri ng with a possib le associ ated disc protru carlos. There is severe centra l canal stenos is and severe bilate ral neural forami nal stenos is. The parasp inous muscul ature is symmet will and normal in attenu ation. IMPRES CARLOS: 1. The patiavel t is status post insert operator ior fusion from T10 throug h the visual ized lumbar spine. There is lucenc y adjace nt to the left T10 pedicl e screw which may repres ent loosen ing. 2. There is a broad- based disc protru carlos at T7-T8 with mild centra l canal narrow ing and mild bilate ral neural forami nal narrow ing. 3. There is severe centra l canal stenos is and severe bilate ral neural forami nal stenos is at C6-C7. Interp reted By: Radha love MD Electr onical ly Signed By: Radha love MD on 9:36 AM [facility] Radiology [address], [phone], 03/20/2024 14:20:45 02/04/20 24 02/04/2024 CT, lumba r spine , w/o contr ast [facility] [address] [place] [address] Patiavel falk Name: TINO falk : 946 Ramo falk 46 Orderi ng Provid er: CARLOS MANUEL PATEL EXAM DATE: 2023 EXAM: CT LUMBAR WITHOU T CONTRA ST HISTOR Y: 78-yea r-old female with back pain and prior lumbar surger y. COMPAR MICHELLE: CT dated 1/18/2 024 and 023. TECHNI QUE: 1 mm direct axial slices were obtain ed throug h the lumbar spine. Comput er-gen erated axial, sagitt al, and duckworth l recons tructi ons are also provid ed for interp retati on. FINDIN GS: The patien t is status post insert operator ior fusion from T10 throug h the sacrum with additi onal iliac screws in place. The thorac ic spine is not comple tely visual ized on this study. There is lucenc y adjace nt to the left and right iliac screws . There are prior discec tomies and interb mike graft and L1-L2 and L4-L5. There are kathy ctomie s throug hout the lumbar spine. There is levocu rvatur e from T12 throug h L3, and dextro curvat ure from L3 throug h L5. There is grade 1 anteri or listhe sis of L5 on S1. There is a bilate ral defect in the pars intera rticul manas of the L5 level. There is no compre ssion fractu re. There is modera te to severe latera l and anteri or margin al osteop hytic spurri ng. No pathol ogic lesion is identi fied in the lumbar spine. T12-L1 : This interv ertebr al disc is normal in appear ance. L1-L2: There is a mild disc bulge and mild endpla te spurri ng. There is no centra l canal stenos is. There is mild right neural forami nal stenos is. L2-L3: There is a diffus e disc/o steoph yte comple x. There is no centra l canal stenos is. There is modera te bilate ral neural forami nal stenos is. L3-L4: There is a diffus e disc/o steoph yte comple x. There is no centra l canal stenos is. There is modera te bilate ral neural forami nal stenos is. L4-L5: There is left greate r than right endpla te spurri ng with a diffus e disc/o steoph yte comple x. There is no centra l canal stenos is. There is severe left and modera te right neural forami nal stenos is. L5-S1: There is a diffus e disc/o steoph yte comple x which is more promin ent on the right. There is no centra l canal stenos is. There is severe right and modera te/sev ere left neural forami nal stenos is. The parasp inous muscul ature is modera tely atroph ic. IMPRES CARLOS: 1. The patien t is status post insert operator ior fusion from T10 throug h the iliac bones, kathy ctomy throug hout the lumbar spine, and prior discec natividad and interb mike fusion at L1-L2 and L4-L5. . There is lucenc y adjace nt to the iliac screws which could repres ent loosen ing. 2. There is modera te to severe bilate ral neural forami nal narrow ing from L2-L3 throug h L5-S1. Interp reted By: Radha love MD Electr onical ly Signed By: Radha love MD on 9:41 AM [email or web address] [facility] Radiology [facility] [address] [place] [address], [phone], 03/04/2024 15:32:46 06/30/20 24 06/30/2024 XR, lumbo sacra l spine , 2 or [address] [address] Ramo falk Name: TINO falk : 946 Patiavel t 46 Orderi ng Provid er: CARLOS MANUEL PATEL EXAM DATE: 2023 EXAM: XR LUMBAR AP/LAT CLINIC AL INFORM ATION: Back pain. IMAGES PROVID ED: AP, latera l and coned down views of the lumbar spine. COMPAR MICHELLE: 024 FINDIN GS: Previo us thorac olumbo sacral insert operator ior fusion . This appear s to extend from T10 to S2. No defini te hardwa re compli cation . No loosen ing is noted. There are 2 cannul ated screws bita sing the SI joints which have been added in the interv al. No radiog raphic eviden ce of injury is noted. IMPRES CARLOS: Previo us thorac olumba r sacral fusion with no compli cation noted Interp reted By: Joaquin Hernandez MD Electr onical ly Signed By: Joaquin Hernandez MD on 2023 1:[address] Radiology [facility] [address] [place] [address], [phone], 06/30/2024 14:17:39 09/30/19 25 09/29/2024 XR, lumbo sacra l spine , 2 or 3 view [facility] [address] [address] Patien t Name: TINO falk : 946 Ramo falk 46 Orderi ng Provid er: CARLOS MANUEL PATEL EXAM DATE: 2024 EXAM: XR LUMBAR AP/LAT CLINIC AL INFORM ATION: Back pain. IMAGES PROVID ED: AP, latera l and coned down views of the lumbar spine. COMPAR MICHELLE: 2023 FINDIN GS: Previo us insert operator ior fusion extend ing from T10 to [...] Joaquin Hernandez MD on 025 12:[address] Radiology [facility] [address] [place] [address], [phone], 09/29/2024 12:57:51 09/30/19 25 09/29/2024 XR, hip, bilat eral, 3 or 4 view [facility] [address] [place] [address] [phone] Patien t Name: TINO falk : 946 Ramo t 46 Orderi ng Provid er: CARLOS MANUEL PATEL EXAM DATE: 2024 EXAM: XR ANGELA HIPS, [...] love MD on 025 12:46 PM [email or web address] [facility] Radiology [address], [phone], 09/29/2024 12:57:51 Result Notes None recorded. Problems Name Problem SNOMED Code Status Onset Date Resolution Date Notes Provider Name and Address Organization Details Recorded Time Lumbar spondylolis thesis 2905742214737 02 Active 2021 RADHA BROWN PA-C [address] [place] [address], [phone], [facility] 2 15:02:40 Lumbar radiculopat 978338701 Active 2021 [facility] 4 08:22:50 Problem Notes None recorded. Procedures Surgical History Date Name Laterality Status Provider Name and Address Organization Details Recorded Time 02/03/20 22 Injection, Transforaminal Epidural completed DAYANARA MAHARAJ MD [address] [place] [address], [phone], [facility] 02/02/2022 10:10:09 hysterectomy completed [facility] 11/24/2021 10:45:49 cataract surgery completed [facility] 11/24/2021 10:46:05 ligation of fallopian tube completed Jossie Orozco [place] - [facility] 11/24/2021 10:46:13 Imaging Results Imaging Date Name Status LastModified by Organiz ation Details LastModified Time 01/31/2024 XR, lumbosacral spine, 2 or 3 view completed [address] Radiology [facility] [address] [place] [address], [phone], 02/02/2024 12:26:54 02/04/2024 CT, thoracic spine, w/o contrast completed [email or web address] [facility] Radiology [facility] [address] [place] [address], [phone], 03/20/2024 14:20:45 02/04/2024 CT, lumbar spine, w/o contrast completed [email or web address] Radiology [facility] [address] [place] [address], [phone], 03/04/2024 15:32:46 06/30/2024 XR, lumbosacral spine, 2 or 3 view completed [address] Radiology [facility] [address] [place] [address], [phone], 06/30/2024 14:17:39 09/29/2024 XR, lumbosacral spine, 2 or 3 view completed [address] [place] [address], [phone], 09/29/2024 12:57:51 09/29/2024 XR, hip, bilateral, 3 or 4 view completed [address] [place] [address], [phone], 09/29/2024 12:57:51 Procedure Notes None recorded. Medical Equipment None Reported. Allergies Allergen ID Allergen Name Allergen Category Reaction Reaction Severity Criticality Documentation Date Start Date Code Code System Note Provider Name and Address Organization Details Recorded Time 875286 cephalexi n medicatio n Not available Not available Not available 05/21/20242021 2231 RxNorm Geovannakal Xiong [facility] 4 08:22:49 202238 azithromy tarah medicatio n Not available Not available Not available 05/21/20242021 44604 RxNorm [facility] 4 08:22:49 117332 enoxapari n medicatio n Not available Not available Not available 05/21/20242021 98895 RxNorm [facility] 4 08:22:49 137487 levofloxa tarah medicatio n Not available Not available Not available 05/21/20242021 40978 RxNorm [facility] 4 08:22:49 Medications Name Sig Start Date [...] and Address Organization Details Last Updated DateTime 01/31/2024 167.64 cm 28.6 kg/m2 92312.85 g 130 mm[Hg] 72 mm[Hg] [facility] 4 10:48:22 Date Recorded Body height Body mass index (BMI) Body weight Systolic blood pressure Diastolic blood pressure Provider Name and Address Organization Details Last Updated DateTime 06/30/2024 167.64 cm 28.6 kg/m2 75228.85 g 130 mm[Hg] 72 mm[Hg] [facility] 4 14:36:15 Date Recorded Body height Body mass index (BMI) Body weight Systolic blood pressure Diastolic blood pressure Provider Name and Address Organization Details Last Updated DateTime 09/29/2024 167.64 cm 28.6 kg/m2 21895.85 g 130 mm[Hg] 74 mm[Hg] Jossie Orozco [facility] 13:03:36 Social History Question Answer Notes LastModified by Organizat ion Details LastModified Time Tobacco Smoking Status [facility] 11/24/2021 10:45:39 What Was The Date [...] SNOMED-CT Code Diagnosis ICD10 Code Diagnosis Note [id number] JERRY PATEL MD [facility] [address] [place] [address] 11/24/2021 10:31:55 11/27/2021 09:04:18 Lumbar radiculopathy 293172320 M54.16 Time spent reviewing images, discussing the diagnosis and coordinati ng care: 30min [id number] DAYANARA MAHARAJ MD PAIN MEDICINE [address] [place] [address] 01/06/2022 14:02:53 01/06/2022 15:17:38 Lumbar spondylolisthesis 5438858380 01747 M43.16 Lumbar radiculopathy 128 903180 M54.16 Degenerati on of lumbar intervertebral disc 42163821 M51.36 [id number] DAYANARA MAHARAJ MD [facility] PROFESSIO NAL CHARGES [address] [facility] [place] [address] 01/25/2022 13:02:21 01/28/2022 03:47:29 Lumbar radiculopathy 083320125 M54.16 [id number] DAYANARA MAHARAJ MD [facility] PROFESSIO NAL CHARGES [address] [facility], [address] [place] [address] 02/02/2022 09:55:23 02/10/2022 09:09:48 Lumbar radiculopathy 447835839 M54.16 [id number] RADHA BROWN PA-C [facility] [address] [place] [address] 02/20/2022 13:41:50 02/21/2022 14:09:13 Lumbar spondylolisthesis 3665581644 52991 M43.16 76-year-ol d female with left lumbar radiculopa thy in an L5-S1 spondyloli sthesis and severe degenerati ve changes throughout the lumbar spine. Patient is exhausted conservati ve treatment. Her pain remains severe. Given that the patient's symptoms have escalated since her last image and it was over 5 months ago, we would like to repeat the patient's lumbar MRI. Also like to update the patient's CT scan. This is to better evaluate the bony architectu re. The pain is either a candidate for an L5-S1 fusion, which we would like to avoid as she is at high risk for need of multiple fusion extensions even up into the thoracic spine. Adamatidiana luciano she could have a pressure on the left at L5-S1 but this decision will be made once her updated MRI and CT scan is completed. pt seen by myself and dr patel [id number] RADHA BROWN PA-C [facility] [address] [place] [address] 04/27/2022 13:06:15 05/02/2022 13:17:15 Lumbar radiculopathy 818976593 M54.16 77-year-ol d female with worsening chronic left greater than right lumbar radiculopa thy. Updated the patient provided on a CD, lumbar MRI and CT scan dated 03/09/2022 from [facility] reviewed with Dr. Patel. This shows severe diffuse lumbar spondylosi s. There is an L5-S1 spondyloli sthesis. There are multiple levels of severe foraminal and lateral recess stenosis. Dr. Patel is recommendi ng a T10 and iliac decompress ion and fusion with AIRO. This is due to the severe diffuse degenerati ve changes in the lumbar spine and multiple levels of severe stenosis. She has failed conservati ve measures and her pain remains severe and affecting her quality of life. We discussed the procedure in detail including risks benefits and expected postoperat bhavin course. She will likely need rehabilita tion after surgery. Risks do include pseudoarth rosis, spinal fluid leak, infection, developmen t of adjacent level disease. They agree to proceed. She will need with our plastic surgery manager today. [id number] [facility] SURGERY SCHEDULE [address] [place] [address] 07/04/2022 11:54:20 07/06/2022 11:14:15 [id number] Hallie Cortez [facility] [address] [facility] [place] [address] 07/13/2022 10:07:31 07/18/2022 15:05:02 [id number] JERRY PATEL MD [facility] [address] [facility] [place] [address] 08/03/2022 10:02:53 08/04/2022 04:12:44 Postoperative care [id number] Z48.89 [id number] JERRY PATEL MD [facility] [address] [place] [address] 10/26/2022 09:59:19 10/27/2022 04:38:43 Postoperative care [id number] Z48.89 [id number] [facility] [address] [place] [address] 10/26/2022 13:36:49 10/26/2022 14:49:07 Strain of hamstring tendon 093457279 S76.312A [id number] JERRY PATEL MD [facility] [address] [place] [address] 04/12/2023 09:19:34 04/13/2023 12:16:30 Lumbar spondylosis 844426447 M47.896 [id number] Jossie Pam SURGERY SCHEDULE [address] [place] [address] 07/03/2023 10:03:51 07/04/2023 15:10:16 [id number] [facility] [address] [place] [address] 07/13/2023 09:27:38 07/21/2023 04:20:06 [id number] JERRY PATEL MD [facility] [address] [place] [address] 08/02/2023 10:47:51 08/03/2023 04:45:47 Postoperative pain 598132919 G89.18 [id number] MORGAN ROJAS APRN [facility] [address] [place] [address] 01/31/2024 10:27:12 02/01/2024 04:05:44 Lumbar radiculopathy 374731934 M54.16 Postoperative pain 12518 9007 G89.18 [id number] Jossie Pam SURGERY SCHEDULE [address] [place] [address] 05/26/2024 14:20:26 06/04/2024 13:41:00 [id number] Ashlyn rdz [facility] [address] [place] [address] 05/30/2024 10:04:59 06/06/2024 04:45:06 [id number] JERRY PATEL MD [facility] [address] [place] [address] 06/30/2024 13:44:13 07/01/2024 06:59:51 Postoperative care [id number] Z48.89 [id number] MORGAN ROJAS, FRONT END WEB DESIGNER [facility] [address] [place] [address] 09/29/2024 12:40:28 09/30/2024 05:38:27 Low back pain 309326119 M54.50 Health Concerns Section Related Observation LastModified by Organization Detai ls LastModified Time None Recorded Concern Status LastModified by Organization Details LastModified Time None Recorded Advance Directives Directive None Recorded Payers Encounter Date Sequence Insurance Name Policy Number Policy Bethea Covered Member ID Bethea Member ID Guarantor Name 01/31/2024 1 [place] Delmy Brady [id number] Delmy Brady 01/31/2024 2 [place] [id number] Delmy Brady [id number] Delmy Brady 05/16/2024 1 [place] Delmy Brady [id number] Delmy Brady 05/16/2024 2 [place] [id number] Delmy Brady [id number] Delmy Brady 05/30/2024 1 [place] Delmy Brady [id number] Delmy Brady 05/30/2024 2 [place] [id number] Delmy Brady [id number] Delmy Brady 06/30/2024 1 [place] Delmy Brady [id number] Delmy Brady 06/30/2024 2 [place] [id number] Delmy [place] [id number] Delmy Brady 09/29/2024 1 [place] Delmy Brady [id number] Delmy Brady 09/29/2024 2 [place] [id number] Delmy Brady [id number] Delmy Brady Notes Date Note Type Note Provider Name and Address Organization Details Recorded Time 01/31/2024 text/html Delmy Brady is a 78-year-old female here, accompanied by her son, after last being seen on 08/02/2023 for follow-up after having an L5-S1 fusion revision with SI joint fusion revision on 06/29/[address] Patel. She states that at the end of June she rolled over in bed one night while sleeping and heard a pop and began to experience pain the next day. The pain was initially in the lateral aspect of her left distal lower extremity only. She began to ambulate, in an attempt to relieve her discomfort. A few days later, she noticed an aching pain in her lower back that began to radiate down the posterior aspect of her right leg. Prolonged sitting worsens her pain. During her last visit PT was offered but she refused. Now her symptoms continue to worsen, having severe constant pain of 8/10 accompanied with left leg numbness and weakness. It has been difficult for her to even walk short distances. MORGAN ROJAS, LINDA [address] [place], [address], [facility] 01/31/2024 13:05:36 06/30/2024 text/html Mrs. Brady is a 79-year-old female status post revision of L5-S1 fusion. She presents today for first postoperative visit with x-rays. She has been doing well with good improvement in her pain. She does have some weakness in her left leg, which is giving some difficulty walking. She does much better with a walker. Her family member present with her today, I believe her grandson, I think she is doing much better. JERRY PATEL MD [address] [place], [address], [facility] 06/30/2024 15:20:41 09/29/2024 text/html Ms. Shetty is a pleasant 79-year-old female status post T10 to iliac decompression and fusion on 06/27/2022, L5-S1 fusion revision with S1 joint fusion revision on 06/29/2023 and revision of iliac fixation on 05/16/[address] Jorge. She states that she has noticed improvement [...] show mild to moderate degeneration. MORGAN ROJAS, [employer] [address] [place], [address], [facility] 09/29/2024 13:33:46 OBGyn Episode No OBEpisode recorded.
== END 2024-10-29 23:59 | disposition home or self-care (01) ==
LOC: RAD 12:46
PROVIDERS: PCP Nurse Practitioner Family; Visit Provider Nurse Practitioner Family
DX: Z12.31 Encounter for screening mammogram for malignant neoplasm of breast (principal)
CPT/HCPCS: 77063; 77067